=== PATIENT | male | born 1940 | race Caucasian/White ===

== ENCOUNTER 2017-04-02 10:52 | Inpatient (IN) | payer OTHER, MEDICARE ==
[~2017-04-02] VITALS: Ht 172.7 cm; Wt 77.1 kg
[~2017-04-02 10:52] MED LIST: AMLODIPINE BESY10 M1 PO; AMLODIPINE BESYL5 M1 PO; ATENOLOL100 M1 PO; ATORVASTATIN CA40 M1 PO; BENICAR40 M1 PO; CARBIDOPA-LEVO1 EAC7 PO; COLACE100 M1 PO; ENTACAPONE200 M1 PO; LISINOPRIL-HCT1 EAC1 PO; MAGNESIUM400 M1 PO; NUPLAZID17 MG PO; POTASSIUM CHLO20 ME2 PO
--- NOTE | 2017-04-02 11:20 | ED CARDIAC/CP/PALPITATIONS ---
History of Present Illness General Chief Complaint: Altered Mental Status Stated Complaint: BIBA CHANGE IN MENTAL STATUS Source: patient Exam Limitations: no limitations Vital Signs & Intake/Output Vital Signs & Intake/Output Vital Signs Date Time Temp Pulse Resp B/P B/P Pulse O2 O2 Flow FiO2 Mean Ox Delivery Rate 04/02 1359 98.2 112 17 122/66 99 Room Air 04/02 1358 98.2 112 17 122/66 04/02 1302 98.2 144 24 154/94 04/02 1302 98.2 144 24 154/94 100 Room Air 04/02 1201 139 13 138/107 04/02 1151 99 Room Air 04/02 1103 98.3 129 18 155/96 95 Room Air Allergies Coded Allergies: No Known Allergies (02/06/16) Reconcile Medications Amlodipine Besylate 5 MG TABLET 1 TAB PO 0900 HEART/BP (Reported) Atorvastatin Calcium 40 MG TABLET 1 TAB PO DAILY CHOLESTEROL (Reported) Carbidopa/Levodopa (Carbidopa-Levodopa 25-100 Tab) 25 MG-100 MG TABLET 1 TAB PO 5XDAILY PARKINSONS (Reported) Cefuroxime Axetil (Cefuroxime) 500 MG TABLET 1 TAB PO BID ANTIBIOTIC, INFECTION (Reported) Docusate Sodium (Colace) 100 MG CAPSULE 1 CAP PO BID STOOL SOFTENER (Reported ) Entacapone 200 MG TABLET 1 TAB PO TID PARKINSONS (Reported) Magnesium Oxide (Magnesium) 400 MG CAPSULE 1 CAP PO BID SUPPLEMENT (Reported) Nitrofurantoin Monohyd/M-Cryst (Nitrofurantoin [place]-Mcr 100 MG) 100 MG CAPSULE 1 CAP PO BID ANTIBIOTIC, INFECTION (Reported) Pimavanserin Tartrate (Nuplazid) 17 MG TABLET 2 TAB PO 0700 UNKNOWN (Reported ) Potassium Chloride 20 MEQ TAB.ER.PRT 1 TAB PO DAILY SUPPLEMENT (Reported) Triage Note: 76 Y/O MALE BIBA FROM [facility] FOR EVAL OF "DIFFICULTY WAKING THIS MORNING". STATES PT HAS PARKINSONS AND OFTEN IS DIFFICULT TO AROUSE HOWEVER THIS MORNING IT SEEMED TO BE LONGER IN DURATION. PER EMS, PT ONLY WOKE WHEN EMS LIFTED PT OUT OF BED. PT ARRIVES A/O X 4, DENIES PAIN. "I FEEL FINE". ALSO REPORTS RECENT URI SYMPTOMS AND CONGESTED COUGH - LAST DAY ANTIBIOTICS TODAY. HR NOTED TO BE RAPID IN 140'S. EKG IN PROGRESS AWAITING EVAL PRE HOSPITAL FLUIDS D/[place]EXANDER UNTIL EVAL. HEPLOCKED Triage Nurses Notes Reviewed? yes Onset: Abrupt Duration: day(s):, constant Timing: recent history Quality/Severity: moderate Radiation: no radiation Activities at Onset: none HPI: 76-year-old male comes into the emergency room with increased weakness, shortness of breath, coughing, and some intermittent chest pains. Patient has had symptoms getting worse over the last couple weeks. He has a history of Parkinson's hypertension and hyperlipidemia. He has some baseline dementia from the Parkinson's disease. There is been no reports of fever vomiting or chills. Denies any other associated symptoms. (Yonatan Castorena) Past History Travel History Traveled to [place] past 21 day No Medical History Any Pertinent Medical History? see below for history Neurological: dementia, Parkinson's disease EENT: NONE Cardiovascular: hypertension Respiratory: NONE Gastrointestinal: NONE Hepatic: NONE Renal: NONE Musculoskeletal: NONE Psychiatric: NONE Endocrine: NONE Blood Disorders: NONE Cancer(s): NONE Surgical History Surgical History: hernia repair-inguinal Psychosocial History Services at Home Nursing, Occupational Therapy, Physical Therapy What is your primary language E[place]an Family History Family History, If Any: FATHER Relation not specified for: FH: Parkinson's disease Hx Contributory? No (Yonatan Castorena) Review of Systems Review of Systems Constitutional: Reports: see HPI. EENTM: Reports: no symptoms. Respiratory: Reports: see HPI. Cardiovascular: Reports: see HPI. GI: Reports: no symptoms. Genitourinary: Reports: no symptoms. Musculoskeletal: Reports: no symptoms. Skin: Reports: no symptoms. Neurological/Psychological: Reports: no symptoms. Hematologic/Endocrine: Reports: no symptoms. Immunologic/Allergic: Reports: no symptoms. All Other Systems: Reviewed and Negative (Yonatan Castorena) Physical Exam Physical Exam General Appearance: alert, awake, mild distress Head: atraumatic Eyes: Bilateral: normal appearance. Ears, Nose, Throat: normal ENT inspection, hearing grossly normal Neck: normal inspection Respiratory: no respiratory distress, decreased breath sounds Cardiovascular: tachycardia, irregularly irregular Gastrointestinal: soft Rectal: brown stool, trace heme positve Back: normal inspection Extremities: normal inspection, no edema Neurologic/Psych: awake, alert, oriented x 3 Skin: intact, normal color Core Measures ACS in differential dx? Yes CVA/TIA Diagnosis No Sepsis Present: No Sepsis Focused Exam Completed? No (Ike AUGUST,Yonatan) Progress Differential Diagnosis: AMI, aortic dissection, atrial fibrillation, CHF/pulm edema, hyperthyroid, intracranial hemorrhage, musculoskeletal pain, myocarditis, pancreatitis, pericarditis, pneumonia, pneumothorax, pulmonary embolism, PUD/ GERD, PVCs/PACs, sepsis, unstable angina Plan of Care: Orders Procedure Date/time Status LIPID PANEL 04/03 0600 Active CBC WITHOUT DIFFERENTIAL 04/03 0600 Active BASIC ELECTROLYTES PLUS BUN&CR 04/03 0600 Active Heart Healthy Diet 04/02 D Active PARTIAL THROMBOPLASTIN TIME 04/02 1950 Active RAPID VIRAL INFLUENZA A 04/02 1502 Active Pathway - chart 04/02 1457 Active House Staff 04/02 1457 Active Patient Data 04/02 1457 Active Code Status 04/02 1457 Active ED Holding Orders 04/02 1338 Active Admit to inpatient 04/02 1338 Active Vital Signs 04/02 1338 Active Code Status 04/02 1338 Complete Patient Data 04/02 1324 Active EKG 04/02 1246 Active THYROID STIMULATING HORMONE 04/02 1140 Complete TOTAL TRIODOTHYROXINE 04/02 1140 Complete THYROXINE 04/02 1140 Complete FREE T4 04/02 1140 Complete BLOOD CULTURE 04/02 1119 Active URINALYSIS 04/02 1119 Complete TROPONIN LEVEL 04/02 1119 Complete PARTIAL THROMBOPLASTIN TIME 04/02 1119 Complete PROTHROMBIN TIME 04/02 1119 Complete LACTIC ACID 04/02 1119 Complete COMPREHENSIVE METABOLIC PANEL 04/02 1119 Complete CBC WITHOUT DIFFERENTIAL 04/02 1119 Complete Intake & Output 04/02 1103 Active EKG 04/02 1103 Active Lab Add-on Test 04/02 UNK Active VTE Mechanical Prophylaxis 04/02 UNK Active Telemetry/Mold Hoister 04/02 UNK Active Nursing Misc 04/02 UNK Active ECHOCARDIOGRAM 04/02 UNK Active Current Medications Sig/Amador Start time Last Medication Dose Stop Time Status Admin Atorvastatin Calcium 40 MG DAILY 04/03 1000 AC (Lipitor) Potassium Chloride 20 MEQ DAILY 04/03 1000 AC (K-Dur) Docusate Sodium 100 MG BID 04/02 2200 AC (Colace) Entacapone 200 MG TID 04/02 1600 AC (Comtan) Non-Formulary 0 SEE ADMIN CRITERIA 04/02 1530 UNVr Medication (NON FORMULARY) Carbidopa/Levodopa 1 TAB .[5XDAILY] 04/02 1515 UNVr (Sinemet 25/100MG) Diltiazem HCl 125 MG Q16H 04/02 1515 AC (Cardizem DRIP) Dextrose/Water 100 ML (D5W) Nitrofurantoin 100 MG BID 04/02 1507 AC (Macrodantin 50MG 04/03 1001 Cap) Magnesium Oxide 400 MG BID 04/02 1506 AC (Mag-Ox) Heparin Sodium 25,000 UNIT Q24H 04/02 1330 AC 04/02 (Porcine) 1347 (Heparin) Sodium Chloride 500 ML Laboratory Tests 04/02/17 1419: Lactic Acid Cancelled 04/02/17 1355: Urine Color YEL, Urine Clarity CLEAR, Urine pH 6.0, Ur Specific [place] 1.025, Urine Protein 30 H, Urine Ketones TRACE H, Urine Nitrite NEG, Urine Bilirubin NEG, Urine Urobilinogen 0.2, Ur Leukocyte Esterase NEG, Ur Microscopic SEDIMENT EXAMINED, Urine RBC RARE, Urine WBC 1-3 H, Urine Mucus MANY H, Urine Hemoglobin NEG, Urine Glucose NEG 04/02/17 1140: Anion Gap 10, Estimated GFR > 60, BUN/Creatinine Ratio 30.0 H, Glucose 116 H, Lactic Acid 1.5, Calcium 8.8, Total Bilirubin 0.7, AST 23, ALT 19 L, Alkaline Phosphatase 94, Troponin I 0.03, Total Protein 7.3, Albumin 3.7, Globulin 3.6, Albumin/Globulin Ratio 1.0 L, TSH 1.240, Free T4 1.28, Thyroxine (T4) 7.4, Total T3 0.98, PT 12.0, INR 1.14, APTT 30, CBC w Diff NO MAN DIFF REQ, RBC 5.30, MCV 73.2 L, MCH 24.3 L, MCHC 33.1, RDW 15.7 H, MPV 8.7, Gran % 90.8 H, Lymphocytes % 6.5 L, Monocytes % 2.7, Eosinophils % 0, Basophils % 0, Absolute Granulocytes 9.3 H, Absolute Lymphocytes 0.7 L, Absolute Monocytes 0.3, Absolute Eosinophils 0, Absolute Basophils 0 Microbiology 04/02 1502 NASOPHARYN: Influenza Virus A & B Rapid Smear - ORD 04/02 1155 BLOOD: Blood Culture - RECD 04/02 1140 BLOOD: Blood Culture - RECD Diagnostic Imaging: Viewed by Me: Radiology Read. Discussed w/RAD: Radiology Read. Radiology Impression: PATIENT: YULY XAVIER PRESENT AGE: 76 PATIENT ACCOUNT NO: [id number] : 41 LOCATION: [facility] ORDERING PHYSICIAN: Yonatan AUGUST SERVICE DATE: 04/02/17 EXAM TYPE : RAD - XRY-PORTABLE CHEST XRAY EXAMINATION: XR PORTABLE CHEST CLINICAL INFORMATION: Cough COMPARISON: 08/22/2016 TECHNIQUE: Portable frontal view of the chest was obtained. FINDINGS: Lungs are well expanded and clear. No pulmonary consolidation or pleural effusion. Again noted is a mildly enlarged cardiac silhouette. The hilar contours are normal. The visualized bones are intact. IMPRESSION: No acute cardiopulmonary findings. DICTATED BY: John Faria MD DATE/TIME DICTATED:04/02/171210 [employer]:WILDER DATE/TIME TRANSCRIBED:04/02/171210 CONFIDENTIAL, DO NOT COPY WITHOUT APPROPRIATE AUTHORIZATION. <Electronically signed in Other Vendor System> SIGNED BY: John Faria MD 04/02/171214 Initial ED EKG: rate (118), AFIB (Yonatan Castorena) Departure Departure Disposition: STILL A PATIENT Condition: Stable Clinical Impression Primary Impression: Rapid atrial fibrillation Secondary Impressions: New onset a-fib Referrals: Caty Franks MD (PCP/Family) Departure Forms: Customer Survey General Discharge Information Admission Note Spoke With: Freddy SIMS PHD,Anam Rios Documentation of Exam: Documentation of any treatments & extenuating circumstances including Concerns Regarding Discharge (functional status, medication knowledge or non-compliance, living conditions, etc.) that warrant an admission rather than observation: Patient will require rate control. IV heparin. Cardiac telemetry. Cardiac consultation. Echocardiogram. High risk. Medically not safe for discharge. No prior history. (Yonatan Castorena) PA/LAW EXAMINER Co-Sign Statement Statement: ED Attending supervision documentation- [x] I saw and evaluated the patient. I have also reviewed all the pertinent lab results and diagnostic results. I agree with the findings and the plan of care as documented in the PA's/LAW EXAMINER's documentation. [] I have reviewed the ED Record and agree with the PA's/LAW EXAMINER's documentation. [] Additions or exceptions (if any) to the PAs/LAW EXAMINER's note and plan are summarized below: [] (Zain BOYER,Damon Butler) Critical Care Note Critical Care Note Critical Care Time: 30-74 min (45) (Ike AUGUST,Yonatan)
[2017-04-02] MEDS ORDERED: NITROFURANTOIN100 M6 PO (11:50)
[2017-04-02] MEDS ORDERED: CEFUROXIME500 MG PO (11:50)
[2017-04-02 11:57] LABS: ABSOLUTE BASOPHIL COUNT 0 /CUMM (0.0-0.2); ABSOLUTE EOSINOPHIL COUNT 0 /CUMM (0.0-0.7); ABSOLUTE GRANULOCYTE CT 9.3 /CUMM (1.4-6.5); ABSOLUTE LYMPH COUNT 0.7 /CUMM (1.2-3.4); ABSOLUTE MONOCYTE COUNT 0.3 /CUMM (0.10-0.60); BASOPHIL % 0 % (0.0-2.0); EOSINOPHIL % 0 % (0-5); HEMATOCRIT 38.8 % (42-52); MEAN CORPUSCULAR HGB 24.3 PG (27.0-31.0); MEAN CORPUSCULAR HGB CONC 33.1 G/DL (33.0-37.0); MEAN CORPUSCULAR VOLUME 73.2 FL (80.0-94.0); MEAN PLATELET VOLUME 8.7 FL (7.4-10.4); PLATELET COUNT 251 /CUMM (130-400); RBC DISTRIBUTION WIDTH 15.7 % (11.5-14.5); WHITE BLOOD CELL COUNT 10.2 /CUMM (4.8-10.8)
[2017-04-02 12:10] LABS: PTT 30 SEC (25-37)
--- NOTE | 2017-04-02 12:15 | RADIOLOGY REPORT ---
EXAMINATION: XR PORTABLE CHEST CLINICAL INFORMATION: Cough COMPARISON: 08/22/2016 TECHNIQUE: Portable frontal view of the chest was obtained. FINDINGS: Lungs are well expanded and clear. No pulmonary consolidation or pleural effusion. Again noted is a mildly enlarged cardiac silhouette. The hilar contours are normal. The visualized bones are intact. IMPRESSION: No acute cardiopulmonary findings.
[2017-04-02 12:17] LABS: GRANULOCYTE % 90.8 % (42.2-75.2)
--- NOTE | 2017-04-02 13:31 | History & Physical ---
Byron Rosales MD 04/02/17 1331: General Information and HPI MD Statement: I have seen and personally examined YULY XAVIER and documented this H&P. The patient is a 76 year old M who presented with a patient stated chief complaint of [weakness and lethargy]. Source of Information: family, old records, EMS History of Present Illness: Patient is 76-year-old male with past medical history of hypertension, hyperlipidemia, Parkinson's, dementia, multiple urinary tract infections, multiple falls, with previous admission in 2016 s/p fall, obstructive sleep apnea, loss of peripheral vision presenting this admission with generalized weakness and lethargy. Per ED notes: Patient was brought in by ambulance from private residence reportedly was difficult to arouse this morning. Per EMS patient will only after being lifted out of bed. Per patient has had upper respiratory infection symptoms and congestion and cough and is currently on antibiotics. Patient was tachy in the 140s. Due to patient's dementia and poor short-term memory, a majority of the history was obtained from the . Patient's states that over the past month, the patient has been having a cough for which he was given mucinex without relief. Approximately 1 week prior to this admission patient's pcp placed him on cefuroxime 500mg BID (has one dose left today). Approximately 2-3 days prior to admission he started experiencing sweating and decreased urine output. Patient is normally continent during the day and occasionally has noctural incontinence. Patients also noted patient's appetite has decreased over the past week however he continues to drink 1-2L of fluid per day and meals are supplemented with ensure. Patient's urine per was foul smelling and per she sent it to the pcp for evaluation of UTI. Patient was found to have UTI and was started on nitrofurontoin 100mg BID (3 more doses left). Over the past week patient has noticeably more twitches/tremors per the . Patient on the morning of admission was found to be lethargic and poorly responsive. EMS was called and per notes patient only awoke once he was being moved from his bed. Patient's states that he was found to have tachycardia approximately 15 years prior for which he believes he was started on atenolol which was stopped 3 years prior after she switched his care. Patient's aide has been documenting patient's blood pressure and heart rate. Over the past two weeks patient's heart rate has been in the 150s with low blood pressures. ROS: + sweating, + joint pain and weakness, difficulty ambulating, + perioid swelling of feet, + gained weight, +constantly craving sugar and increased thirst Allergies: Flomax (became floridly psychotic during admission at [facility] - in 2017) Allergies/Medications Allergies: Coded Allergies: No Known Allergies (02/06/16) Home Med list Amiodarone (Cordarone) 200 MG TAB 0 PO SEE ADMIN CRITERIA HEART Please take 2 tabs twice daily for 4 more days Then please take 1 tab twice daily Aspirin (Aspirin*) 81 MG TAB.CHEW 162 MG PO DAILY HEART Atorvastatin Calcium 40 MG TABLET 1 TAB PO DAILY CHOLESTEROL (Reported) Carbidopa/Levodopa (Carbidopa-Levodopa 25-100 Tab) 25 MG-100 MG TABLET 1 TAB PO 5XDAILY PARKINSONS (Reported) Diltiazem HCl (Cardizem) 30 MG TABLET 1 TAB PO BID HEART Docusate Sodium (Colace) 100 MG CAPSULE 1 CAP PO BID STOOL SOFTENER (Reported ) Entacapone 200 MG TABLET 1 TAB PO TID PARKINSONS (Reported) Magnesium Oxide (Magnesium) 400 MG CAPSULE 1 CAP PO BID SUPPLEMENT (Reported) Potassium Chloride 20 MEQ TAB.ER.PRT 1 TAB PO DAILY SUPPLEMENT (Reported) Past History Travel History Traveled to [place] past 21 day No Medical History Neurological: dementia, Parkinson's disease EENT: NONE Cardiovascular: hypertension Respiratory: NONE Gastrointestinal: NONE Hepatic: NONE Renal: NONE Musculoskeletal: NONE Psychiatric: NONE Endocrine: NONE Blood Disorders: NONE Cancer(s): NONE Surgical History Surgical History: hernia repair-inguinal Past Family/Social History Family History Relations & Conditions if any FATHER Relation not specified for: FH: Parkinson's disease Psychosocial History Who Do You Live With? spouse Services at Home: Nursing, Occupational Therapy, Physical Therapy Primary Language: [place] Review of Systems Review of Systems Constitutional: Reports: weakness. Exam & Diagnostic Data Last 24 Hrs of Vital Signs/I&O Vital Signs Date Time Temp Pulse Resp B/P B/P Pulse O2 O2 Flow FiO2 Mean Ox Delivery Rate 04/02 1302 98.2 144 24 154/94 04/02 1201 139 13 138/107 04/02 1151 99 Room Air 04/02 1103 98.3 129 18 155/96 95 Room Air Intake & Output 04/02 1600 02/19 0800 04/02 0000 Intake Total 200 Output Total Balance 200 Intake, IV 200 Patient 178 lb Weight Weight Reported by Patient Measurement Method Physical Exam General Appearance Alert, Cooperative, No Acute Distress Skin Temp/Moisture Exam: Warm/Dry HEENT Atraumatic, PERRLA, EOMI, Mucous Membr. moist/pink Cardiovascular Normal S1, Normal S2, irregular rate Lungs Clear to Auscultation, Normal Air Movement Abdomen Normal Bowel Sounds, Soft, No Tenderness Neurological Normal Speech, Strength at 5/5 X4 Ext, Normal Tone, Sensation Intact, Cranial Nerves 3-12 NL Extremities No Clubbing, No Cyanosis, No Edema, Normal Pulses, No Tenderness/ Swelling Vascular Normal Pulses, Pulses Symmetrical Last 24 Hrs of Labs/Maxwell: Laboratory Tests 04/02/17 1140: Anion Gap 10, Estimated GFR > 60, BUN/Creatinine Ratio 30.0 H, Glucose 116 H, Lactic Acid 1.5, Calcium 8.8, Total Bilirubin 0.7, AST 23, ALT 19 L, Alkaline Phosphatase 94, Troponin I 0.03, Total Protein 7.3, Albumin 3.7, Globulin 3.6, Albumin/Globulin Ratio 1.0 L, PT 12.0, INR 1.14, APTT 30, CBC w Diff NO MAN DIFF REQ, RBC 5.30, MCV 73.2 L, MCH 24.3 L, MCHC 33.1, RDW 15.7 H, MPV 8.7, Gran % 90.8 H, Lymphocytes % 6.5 L, Monocytes % 2.7, Eosinophils % 0, Basophils % 0, Absolute Granulocytes 9.3 H, Absolute Lymphocytes 0.7 L, Absolute Monocytes 0.3, Absolute Eosinophils 0, Absolute Basophils 0 Microbiology 04/02 1155 BLOOD: Blood Culture - RECD 04/02 1140 BLOOD: Blood Culture - RECD Assessment/Plan Assessment: Patient is a 76-year-old male with past medical history of hypertension, hyperlipidemia, Parkinson's, dementia, multiple urinary tract infections, multiple falls, with previous admission in 2016 s/p fall, obstructive sleep apnea, loss of peripheral vision presenting this admission with generalized weakness and lethargy. On admission: Vitals:T-max: 98.2, heart rate: 129 to 144, RR: 13 to 24, BP: 154/94, 99% on RA EKG: Atrial Fibrillation, rate: 118, left axis deviation, left ventricular hypertrophy, no ST or T wave changes Imaging: CXR: No acute cardiopulmonary findings. Patient will be admitted to telemetry for management of the followin. Atrial Fibrillation: Patient presents with what appears to be new onset A.fib. It appears based on the history and log of his HR, that he may have been in A.fib for > 48 hours. As such patient requires anticoagulation prior to any type of the intervention. Patient received IV Cardizem in the ED. - admit to tele - serial EKG and trops - anticoagulation with IV heparin - continue diltiazem - ECHO - TSH, Free T4 - Monitor vitals 2. UTI History of recurrent UTIs. Currently completing a course of antibiotics for UTI. Today's U/A is negative. - complete the last 3 doses of nitrofurontoin 3. Microcytic anemia Likely patient has anemia 2/2 to GI bleed. - monitor vitals and signs of bleeding - guiac stoosl 4. Parkinson's wtih delirum and demention Patient was scheduled to have an MRI by his neurologist per patient's . Per patient's mental status has declined. - neurology consult - MRI of the brain 5. Hypertension - started on cardizem - amlodipine held DVT PPx: Heparin drip Code: full code Diet: heart healthy diet As Ranked By This Provider Problem List: 1. New onset a-fib Core Measures/Misc (10/29) Acute Coronary Syndrome ACS Diagnosis: No Congestive Heart Failure Congestive Heart Failure Diagnosis No Cerebrovascular Accident CVA/TIA Diagnosis: No VTE (View Protocol) VTE Risk Factors Age>40 No Mechanical VTE Prophylaxis d/t N/A MechProphylax Ordered No VTE Pharm Prophylaxis d/t NA PharmProphylax ordered Sepsis (View protocol) Sepsis Present: No Melania Spencer MD 04/02/17 1524: Resident Review Statement Resident Statement: examined this patient, discussed with internal control analyst, agreed with internal control analyst, discussed with family Other Findings: Patient is a 76-year-old male with past medical history of Parkinson's disease complicated by delirium/dementia, hypertension, hyperlipidemia, recurrent UTI infection, history of multiple falls, loss of peripheral vision, snoring. Obstructive sleep apnea, presented with chief complaints of generalized weakness and difficulty waking him up in the morning. Most of the history is taken from the . According to her he was having cough since last 1 month. She tries Mucinex without any relief. She talked to his PCP , who started him on cefuroxime 500 mg twice daily (today will be the last day x 5 days ). 3 or 4 days ago he started having sweating, decreased appetite, decreased urine output. According to her urine was dark and found spanning so she took the sample, and requested the PCP for checking for UTI. It was positive the patient was started on nitrofurantoin 100 mg twice daily (he was left with 3 doses). He usually take time to wake up in the morning, but today he was quite lethargic and obtunded. According to the and EMS, he woke up when he was lifted off the bed. Of note according to the patient's he had episodes of tachycardia around 15 years ago and he was kept on atenolol which was stopped 3 years ago. Of note patient also told that he was following a neurologist who advised her MRI of the brain around 1 month ago for suspected stroke. He is scheduled for MRI of brain as an outpatient. He was also on a medication Nupalzid for Parkinson's induced delirium, which can cause arrhythmia. Personal history -patient lives at home with her . He quit smoking and alcohol 15 years ago. Denies for any illicit drug abuse. 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 He does not have any complaints with diet, so he started gaining weight. Allergies -Flomax leading to delirium Past medical history - Dementia Parkinson's Hypertension Multiple urinary tract infection Hx fo confusion and delirium Surgical history- Inguinal hernia ED course Vital signs at the time of admission temperature 98.3, pulse 129, respiratory rate 18, blood pressure 155/96, SPO2 95% on room air. Heart rate was 140s. Blood workup showed hemoglobin 12.9, MCV 73.2, platelet count 251, sodium 142, potassium 4.1, chloride 104, anion gap 10, BUN 21, creatinine 0.7, BUN/ creatinine 30.0, glucose 116,AST 23, ALT 19, alkaline phosphatase 94, troponin I 0.03, PT/INR 12.0/1.14, APTT 30, urinalysis showed urine protein 30, ketones trace, WBC 93, mucus many, chest x-ray did not show any acute cardiopulmonary abnormality. Assessment and plan - Atrial fibrillation with rapid ventricular rate - Patient was having history of tachycardia, s 2 years ago Elisha 20 year and was on atenolol which was stopped 3 years ago.We will get the records from his PCP. We do not know if this is a new onset atrial fibrillation. Patient is having guaiac positive stool. He was started on heparin drip and given 10 mg/5 mg of Cardizem pushes. * We will admit the patient to telemetry floor * We will continue patient on heparin and Cardizem drip * we will check for thyroid profile * We will stop amlodipine as the Cardizem is also calcium channel christine. * We will watch for the BP , will watch further bleeding. Will guaiac all stools. * Patient is on Nupalzid, its side effect is, QT prolongation and arrhythmia. Discussed with Dr. Hayes, advised to continue. Cough with chest congestion -post viral bronchitis - Patient already had a course of cefuroxime is still having cough, on physical examination there was good air entry and no evidence of wheezing or bronchospasm. * We will check flu History of recurrent UTI Patient was having history of recurrent UTIs and according to the , this time also his urine was showing infection. He was started on nitrofurantoin. Currently urinalysis did not show any evidence of infection WBC was 1-3. * We will completed the course of nitrofurantoin. * We will follow the urine culture Hypertension Patient was started on Cardizem. He was previously on amlodipine with hold for now and decide for another antihypertensive later on. Microcytic hypochromic anemia Patient's hemoglobin was 12.9 and MCV was 73.2 His stools were guaiac positive. It seems he has iron deficiency anemia * We will check for iron panel * We we will will watch for bleeding * We will Consider GI evaluation if needed Parkinsonism with delirium/dementia * He will continue all his home medication * As he advised by his neurologist for MRI of brain for concern for stroke, we will follow MRI of brain to r/o stroke. CODE STATUS-full code DVT prophylaxis-heparin drip Diet-heart healthy diet DVT prophylaxis-heparin drip Diet-heart healthy diet
--- NOTE | 2017-04-02 17:25 | MRI REPORT ---
Impression: Only motion degraded localizer sequences could be obtained due to patient confusion.
[2017-04-02 17:39] VITALS: BP 150/90
--- NOTE | 2017-04-02 18:10 | Cons- Neurology ---
General Information and HPI Consulting Request Date of Consult: 04/02/17 Requested By: Freddy SIMS PHD,Anam Rios Reason for Consult: Altered mental status, r/o CVA Source of Information: patient, family, aide Exam Limitations: clinical condition, dementia History of Present Illness: 76/M with Parkinsons disease for about 10 years and dementia followed neurologically by Dr. Go in [place] brought in by ambulance this AM as he was difficult to arouse. Heart rate was 140s, AF, and recent URI on antibiotics. He denies any lateralized weakness, numbness or headache He and the aide report occasional moments of reduced responsiveness PD has worsened significantly in the last year since a fall Hallucinations frequent and no improvement on Nuplaizid Functional ability: able to feed self, amb only with walker and assist of 1, unable to arise without help Allergies/Medications Allergies: Coded Allergies: No Known Allergies (02/06/16) Home Med List: Amlodipine Besylate 5 MG TABLET 1 TAB PO 0900 HEART/BP (Reported) Atorvastatin Calcium 40 MG TABLET 1 TAB PO DAILY CHOLESTEROL (Reported) Carbidopa/Levodopa (Carbidopa-Levodopa 25-100 Tab) 25 MG-100 MG TABLET 1 TAB PO 5XDAILY PARKINSONS (Reported) Cefuroxime Axetil (Cefuroxime) 500 MG TABLET 1 TAB PO BID ANTIBIOTIC, INFECTION (Reported) Docusate Sodium (Colace) 100 MG CAPSULE 1 CAP PO BID STOOL SOFTENER (Reported ) Entacapone 200 MG TABLET 1 TAB PO TID PARKINSONS (Reported) Magnesium Oxide (Magnesium) 400 MG CAPSULE 1 CAP PO BID SUPPLEMENT (Reported) Nitrofurantoin Monohyd/M-Cryst (Nitrofurantoin Bailey-Mcr 100 MG) 100 MG CAPSULE 1 CAP PO BID ANTIBIOTIC, INFECTION (Reported) Pimavanserin Tartrate (Nuplazid) 17 MG TABLET 2 TAB PO 0700 UNKNOWN (Reported ) Potassium Chloride 20 MEQ TAB.ER.PRT 1 TAB PO DAILY SUPPLEMENT (Reported) Current Medications: Current Medications Sig/Amador Start time Last Medication Dose Route Stop Time Status Admin Atorvastatin Calcium 40 MG DAILY 04/03 1000 AC PO Carbidopa/Levodopa 1 TAB .[5XDAILY] 04/02 1515 UNVr PO Cefuroxime Sodium 500 MG ONCE ONE 04/02 1515 DC PO 04/02 1516 Diltiazem HCl 60 MG BID 04/02 2200 UNVr PO Diltiazem HCl 125 MG Q16H 04/02 1515 DC Dextrose/Water 100 ML IV Diltiazem HCl 5 MG ONCE ONE 04/02 1315 DC 04/02 IV 04/02 1316 1358 Diltiazem HCl 5 MG ONCE ONE 04/02 1300 DC 04/02 IV 04/02 1301 1302 Diltiazem HCl 0 .STK-MED ONE 04/02 1202 DC .ROUTE Diltiazem HCl 10 MG ONCE ONE 04/02 1130 DC 04/02 IV 04/02 1131 1201 Docusate Sodium 100 MG BID 04/02 2200 AC PO Entacapone 200 MG TID 04/02 1600 AC PO Heparin Sodium 0 .STK-MED ONE 04/02 1354 DC (Porcine) .ROUTE Heparin Sodium 0 .STK-MED ONE 04/02 1353 DC (Porcine) .ROUTE Heparin Sodium 4,000 UNIT ONCE ONE 04/02 1330 DC 04/02 (Porcine) IV 04/02 1331 1358 Heparin Sodium 25,000 UNIT Q24H 04/02 1330 AC 04/02 (Porcine) IV 1347 Sodium Chloride 500 ML Magnesium Oxide 400 MG BID 04/02 1506 AC PO Nitrofurantoin 100 MG BID 04/02 1507 AC PO 04/03 1001 Non-Formulary 0 SEE ADMIN CRITERIA 04/02 1530 UNVr Medication ANY Potassium Chloride 20 MEQ DAILY 04/03 1000 AC PO Review of Systems Review of Systems: admits poor memory, hallucinations animals and people, vision OK SOB chest pain denied constipated ROS limited by dementia Past History Travel History Traveled to [place] past 21 day No Medical History Neurological: dementia, Parkinson's disease EENT: NONE Cardiovascular: hypertension Respiratory: NONE Gastrointestinal: NONE Hepatic: NONE Renal: NONE Musculoskeletal: NONE Psychiatric: NONE Endocrine: NONE Blood Disorders: NONE Cancer(s): NONE Surgical History Surgical History: hernia repair-inguinal Family History Relations & Conditions If Any: FATHER Relation not specified for: FH: Parkinson's disease Psychosocial History Who Do You Live With? spouse Services at Home: Nursing, Occupational Therapy, Physical Therapy Primary Language: Irish ETOH Use: denies use Exam & Diagnostic Data Vital Signs and I&O Vital Signs Date Time Temp Pulse Resp B/P B/P Pulse O2 O2 Flow FiO2 Mean Ox Delivery Rate 04/02 1739 97.9 82 22 150/90 95 Room Air 04/02 1606 98.4 106 22 147/89 98 Room Air 04/02 1359 98.2 112 17 122/66 99 Room Air 04/02 1358 98.2 112 17 122/66 04/02 1302 98.2 144 24 154/94 04/02 1302 98.2 144 24 154/94 100 Room Air 04/02 1201 139 13 138/107 04/02 1151 99 Room Air 04/02 1103 98.3 129 18 155/96 95 Room Air Intake & Output 04/02 1600 04/02 0800 04/02 0000 Intake Total 200 Output Total 500 Balance -300 Intake, IV 200 Output, Urine 500 Patient 178 lb Weight Weight Reported by Patient Measurement Method Physical Exam: color good tachypneic with marked upper airway noise awake oriented to Dec 2016, hospital (not which one) named only 1 of last 4 presidents no language errors mild dysarthria no current hallucination or illusions EOMI, P4ERRL facial movement symmetric, sensation intact LT tongue protrudes midline motor tone increased, mild - mod bradykinesia, labor operator 5/5, power normal DRTRs symmetric, toes downgoing sensation OK LT all 4 extremities Last 48 Hours of Lab Results: Laboratory Tests 04/02 04/02 1419 1355 Chemistry Lactic Acid Cancelled Urines Urine Color (YEL,AMB,STR) YEL Urine Clarity (CLEAR) CLEAR Urine pH (5.0 - 8.0) 6.0 Ur Specific [place] (1.001 - 1.035) 1.025 Urine Protein (NEG,<30 MG/DL) 30 H Urine Ketones (NEG) TRACE H Urine Nitrite (NEG) NEG Urine Bilirubin (NEG) NEG Urine Urobilinogen (0.1 - 1.0 EU/dl) 0.2 Ur Leukocyte Esterase (NEG) NEG Ur Microscopic SEDIMENT EXAMINED Urine RBC (0 - 5 /HPF) RARE Urine WBC (0 - 2 /HPF) 1-3 H Urine Mucus (FEW,NONE) MANY H Urine Hemoglobin (NEG) NEG Urine Glucose (N MG/DL) NEG 04/02 1140 Chemistry Sodium (137 - 145 mmol/L) 142 Potassium (3.5 - 5.1 mmol/L) 4.1 Chloride (98 - 107 mmol/L) 104 Carbon Dioxide (22 - 30 mmol/L) 28 Anion Gap (5 - 16) 10 BUN (9 - 20 mg/dL) 21 H Creatinine (0.7 - 1.2 mg/dL) 0.7 Estimated GFR (>60 ml/min) > 60 BUN/Creatinine Ratio (7 - 25 %) 30.0 H Glucose (65 - 99 mg/dL) 116 H Lactic Acid (0.7 - 2.1 mmol/L) 1.5 Calcium (8.4 - 10.2 mg/dL) 8.8 Iron (49 - 181 ug/dL) 88 TIBC (261 - 462 ug/dL) 316 Ferritin (17.9 - 464 ng/mL) 45.2 Total Bilirubin (0.2 - 1.3 mg/dL) 0.7 AST (17 - 59 U/L) 23 ALT (21 - 72 U/L) 19 L Alkaline Phosphatase (< 127 U/L) 94 Troponin I (<0.11 ng/ml) 0.03 Total Protein (6.3 - 8.2 g/dL) 7.3 Albumin (3.5 - 5.0 g/dL) 3.7 Globulin (1.9 - 4.2 gm/dL) 3.6 Albumin/Globulin Ratio (1.1 - 2.2 %) 1.0 L TSH (0.270 - 4.200 uIU/mL) 1.240 Free T4 (0.78 - 2.44 ng/dL) 1.28 Thyroxine (T4) (4.5 - 10.9 ug/dL) 7.4 Total T3 (0.97 - 1.69 ng/mL) 0.98 Coagulation PT (9.4 - 12.5 SEC) 12.0 INR (0.90 - 1.17) 1.14 APTT (25 - 37 SEC) 30 Hematology CBC w Diff NO MAN DIFF REQ WBC (4.8 - 10.8 /CUMM) 10.2 RBC (4.70 - 6.10 /CUMM) 5.30 Hgb (14.0 - 18.0 G/DL) 12.9 L Hct (42 - 52 %) 38.8 L MCV (80.0 - 94.0 FL) 73.2 L MCH (27.0 - 31.0 PG) 24.3 L MCHC (33.0 - 37.0 G/DL) 33.1 RDW (11.5 - 14.5 %) 15.7 H Plt Count (130 - 400 /CUMM) 251 MPV (7.4 - 10.4 FL) 8.7 Gran % (42.2 - 75.2 %) 90.8 H Lymphocytes % (20.5 - 51.1 %) 6.5 L Monocytes % (1.7 - 9.3 %) 2.7 Eosinophils % (0 - 5 %) 0 Basophils % (0.0 - 2.0 %) 0 Absolute Granulocytes (1.4 - 6.5 /CUMM) 9.3 H Absolute Lymphocytes (1.2 - 3.4 /CUMM) 0.7 L Absolute Monocytes (0.10 - 0.60 /CUMM) 0.3 Absolute Eosinophils (0.0 - 0.7 /CUMM) 0 Absolute Basophils (0.0 - 0.2 /CUMM) 0 Imaging/Other Studies: MRI - MRI-HEAD W/O [place] Impression: Only motion degraded localizer sequences could be obtained due to patient confusion. CXR: No acute cardiopulmonary findings. Assessment/Plan Assessment: No indication clinically of CVA Transient reduced consciousness due to new onset rapid AF Parkinsons disease, advancing, on Sinemet Hallucinations despite Nuplaizid, which can cause QT prolongation Recommendations: CT head x1 (MRI not feasible in view of patient's status, tachypnea) Discontinue Nuplaizid Continue Sinemet 25/100 5 x daily spread out with entacapone every other dose ( first, third, fifth) If severe or frightening hallucinations use low dose Risperdone prn Cardiac evaluation as is underway Consult Acknowledgment - Thank you for your consult request.
--- NOTE | 2017-04-02 21:28 | Cons- Cardiology ---
General Information and HPI Consulting Request Date of Consult: 04/02/17 Requested By: Freddy SIMS PHD,Anam Rios History of Present Illness: Mr. Delaney is a 76 year old male with history of Parkinson's disease with dementia. He also carries a history of hypertension and dyslipidemia. He was brought to the ER for evaluation of mental status changes and difficulty being aroused. The patient has a congested cough without fever or chills. He denies chest discomfort, shortness of breath or lightheadedness but does have intermittent palpitations. In the ER this patient was noted to be in atrial fibrillation with increased heart rate. He was guaiac positive. Allergies/Medications Allergies: Coded Allergies: No Known Allergies (02/06/16) Home Med List: Amlodipine Besylate 5 MG TABLET 1 TAB PO 0900 HEART/BP (Reported) Atorvastatin Calcium 40 MG TABLET 1 TAB PO DAILY CHOLESTEROL (Reported) Carbidopa/Levodopa (Carbidopa-Levodopa 25-100 Tab) 25 MG-100 MG TABLET 1 TAB PO 5XDAILY PARKINSONS (Reported) Cefuroxime Axetil (Cefuroxime) 500 MG TABLET 1 TAB PO BID ANTIBIOTIC, INFECTION (Reported) Docusate Sodium (Colace) 100 MG CAPSULE 1 CAP PO BID STOOL SOFTENER (Reported ) Entacapone 200 MG TABLET 1 TAB PO TID PARKINSONS (Reported) Magnesium Oxide (Magnesium) 400 MG CAPSULE 1 CAP PO BID SUPPLEMENT (Reported) Nitrofurantoin Monohyd/M-Cryst (Nitrofurantoin Petroleum-Mcr 100 MG) 100 MG CAPSULE 1 CAP PO BID ANTIBIOTIC, INFECTION (Reported) Pimavanserin Tartrate (Nuplazid) 17 MG TABLET 2 TAB PO 0700 UNKNOWN (Reported ) Potassium Chloride 20 MEQ TAB.ER.PRT 1 TAB PO DAILY SUPPLEMENT (Reported) Review of Systems Review of Systems: A review of systems is unremarkable. Past History Travel History Traveled to [place] past 21 day No Medical History Neurological: dementia, Parkinson's disease EENT: NONE Cardiovascular: hypertension Respiratory: NONE Gastrointestinal: NONE Hepatic: NONE Renal: NONE Musculoskeletal: ARTHRITIS Psychiatric: NONE Endocrine: NONE Blood Disorders: NONE Cancer(s): NONE Surgical History Surgical History: hernia repair-inguinal Family History Relations & Conditions If Any: FATHER Relation not specified for: FH: Parkinson's disease Psychosocial History Where Do You Live? Home Who Do You Live With? spouse Services at Home: Nursing, Occupational Therapy, Physical Therapy Primary Language: Upper Sorbian Smoking Status: Former Smoker ETOH Use: denies use Exam & Diagnostic Data Vital Signs and I&O Vital Signs Date Time Temp Pulse Resp B/P B/P Pulse O2 O2 Flow FiO2 Mean Ox Delivery Rate 04/02 2101 82 150/90 04/02 2100 82 150/90 04/02 2028 Nasal 2.0L Cannula 04/02 1739 97.9 82 22 150/90 95 Room Air 04/02 1606 98.4 106 22 147/89 98 Room Air 04/02 1359 98.2 112 17 122/66 99 Room Air 04/02 1358 98.2 112 17 122/66 04/02 1302 98.2 144 24 154/94 04/02 1302 98.2 144 24 154/94 100 Room Air 04/02 1201 139 13 138/107 04/02 1151 99 Room Air 04/02 1103 98.3 129 18 155/96 95 Room Air Intake & Output 04/02 1600 04/02 0800 04/02 0000 04/01 1600 04/01 0800 04/01 0000 Intake Total 200 Output Total 500 Balance -300 Intake, IV 200 Output, Urine 500 Patient 178 lb Weight Weight Reported by Patient Measurement Method Physical Exam: General: WD/WN male in NAD; awake and responsive HEENT: NC/AT, PERRL, EOMI Neck: no JVD, no carotid bruit Heart: RRR w/o murmur Lungs: clear bilaterally Abdomen: soft, NT, +ve bowel sounds Extremities: no edema Neuro: decreased memory, muscle strength 5/5 thoroughout Assessment/Plan Assessment/Plan * This patient has paroxysmal atrial fibrillation. In the setting of this dysrhythmia and in the absence of anticoagulation the patient may have had a CVA but his physical exam is not very suggestive of this. 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 We will obtain a neurology consult. * In consideration of his guaiac positive stool we will try to avoid the need for chronic anticoaguation. Since this patient converted spontaneously to a sinus rhythm we will no try to maintain a sinus rhythm with Amiodarone 400mg BID for a week and thereafter with 200mg daily. For now he can continue on IV heparin with monitoring of his H/H. Check his thyroid function tests and obtain an echocardiogram. * Stop Nuplazid. Consult Acknowledgment - Thank you for your consult request.
[2017-04-02 21:31] LABS: PTT > 120 SEC (25-37)
[2017-04-03 07:01] VITALS: BP 180/110
[2017-04-03 07:49] LABS: ABSOLUTE BASOPHIL COUNT 0 /CUMM (0.0-0.2); ABSOLUTE EOSINOPHIL COUNT 0 /CUMM (0.0-0.7); ABSOLUTE GRANULOCYTE CT 5.6 /CUMM (1.4-6.5); ABSOLUTE LYMPH COUNT 0.9 /CUMM (1.2-3.4); ABSOLUTE MONOCYTE COUNT 0.4 /CUMM (0.10-0.60); BASOPHIL % 0 % (0.0-2.0); EOSINOPHIL % 0.2 % (0-5); GRANULOCYTE % 80.4 % (42.2-75.2); HEMATOCRIT 35.7 % (42-52); MEAN CORPUSCULAR HGB 24.2 PG (27.0-31.0); MEAN CORPUSCULAR HGB CONC 32.5 G/DL (33.0-37.0); MEAN CORPUSCULAR VOLUME 74.4 FL (80.0-94.0); MEAN PLATELET VOLUME 9.3 FL (7.4-10.4); PLATELET COUNT 214 /CUMM (130-400); RBC DISTRIBUTION WIDTH 15.4 % (11.5-14.5)
[2017-04-03 08:28] LABS: PTT 72 SEC (25-37)
--- NOTE | 2017-04-03 08:47 | PN- Housestaff ---
Subjective Follow-up For: Atrial Fibrillation - now in NSR Subjective: Patient was seen and examined today. Patient overnight was reportedly confused. Patient's was concerned about his change in medications. Patient is drowsy but arousable today. Does not have any complaints today. Per patient tends to sleep during the day which is usual for him. Review of Systems Constitutional: Reports: see HPI. Objective Last 24 Hrs of Vital Signs/I&O Vital Signs Date Time Temp Pulse Resp B/P B/P Pulse O2 O2 Flow FiO2 Mean Ox Delivery Rate 04/03 1011 70 142/94 04/03 0701 98.5 77 20 180/110 95 Room Air 04/02 2212 98.9 63 97 Nasal 2.0L Cannula 04/02 2101 82 150/90 04/02 210 82 150/90 04/02 2028 Nasal 2.0L Cannula 04/02 1739 97.9 82 22 150/90 95 Room Air 04/02 1606 98.4 106 22 147/89 98 Room Air 04/02 1359 98.2 112 17 122/66 99 Room Air 04/02 1358 98.2 112 17 122/66 04/02 1302 98.2 144 24 154/94 04/02 1302 98.2 144 24 154/94 100 Room Air 04/02 1201 139 13 138/107 04/02 1151 99 Room Air 04/02 1103 98.3 129 18 155/96 95 Room Air Intake & Output 04/03 1600 04/03 0800 04/03 0000 Intake Total 360 Output Total 150 250 Balance 210 -250 Intake, Oral 360 Output, Urine 150 250 Patient 170 lb Weight Weight Reported by Patient Measurement Method Physical Exam General Appearance: Cooperative, No Acute Distress, drowsy but arousable HEENT: Atraumatic, Mucous Membr. moist/pink Cardiovascular: Regular Rate, Normal S1, Normal S2, No Murmurs Lungs: Clear to Auscultation, Normal Air Movement Abdomen: Normal Bowel Sounds, Soft, No Tenderness Extremities: No Clubbing, No Cyanosis, No Edema, Normal Pulses, No Tenderness/ Swelling Current Medications: Current Medications Sig/Amador Start time Last Medication Dose Route Stop Time Status Admin Amiodarone HCl 200 MG DAILY 04/10 1000 AC PO Amiodarone HCl 400 MG BID 04/03 1000 AC 04/03 PO 04/09 2201 1011 Amiodarone HCl 400 MG DAILY 04/02 1900 DC 04/02 PO 2101 Atorvastatin Calcium 40 MG DAILY 04/03 1000 AC PO Carbidopa/Levodopa 1 TAB 1930 04/03 1930 AC PO Carbidopa/Levodopa 1 TAB 0600,1000,1400,1630 04/03 1000 AC 04/03 PO 1009 Carbidopa/Levodopa 1 TAB SEE ADMIN CRITERIA 04/02 1515 DC PO Cefuroxime Sodium 500 MG ONCE ONE 04/02 1515 DC 04/02 PO 04/02 1516 1847 Diltiazem HCl 60 MG BID 04/02 2200 DC PO Diltiazem HCl 30 MG BID 04/02 2200 AC 04/03 PO 1015 Diltiazem HCl 125 MG Q16H 04/02 1515 DC Dextrose/Water 100 ML IV Diltiazem HCl 5 MG ONCE ONE 04/02 1315 DC 04/02 IV 04/02 1316 1358 Diltiazem HCl 5 MG ONCE ONE 04/02 1300 DC 04/02 IV 04/02 1301 1302 Diltiazem HCl 0 .STK-MED ONE 04/02 1202 DC .ROUTE Diltiazem HCl 10 MG ONCE ONE 04/02 1130 DC 04/02 IV 04/02 1131 1201 Docusate Sodium 100 MG BID 04/02 2200 AC 04/03 PO 1010 Entacapone 200 MG Q48 04/05 1000 AC 04/03 PO 1021 Entacapone 200 MG TID 04/02 1600 DC 04/02 PO 2102 Heparin Sodium 0 .STK-MED ONE 04/02 1354 DC (Porcine) .ROUTE Heparin Sodium 0 .STK-MED ONE 04/02 1353 DC (Porcine) .ROUTE Heparin Sodium 4,000 UNIT ONCE ONE 04/02 1330 DC 04/02 (Porcine) IV 04/02 1331 1358 Heparin Sodium 25,000 UNIT Q24H 04/02 1330 AC 04/02 (Porcine) IV 1347 Sodium Chloride 500 ML Magnesium Oxide 400 MG BID 04/02 1506 AC 04/03 PO 1009 Nitrofurantoin 100 MG BID 04/02 1507 DC 04/03 PO 04/03 1001 1010 Non-Formulary 0 SEE ADMIN CRITERIA 04/02 1530 DC Medication ANY Oxymetazoline HCl 2 SPRAY BID 04/02 2200 AC 04/03 AL 1012 Potassium Chloride 20 MEQ DAILY 04/03 1000 AC 04/03 PO 1009 Risperidone 0.25 MG BID PRN 04/03 0915 AC PO Last 24 Hrs of Lab/Maxwell Results Last 24 Hrs of Labs/Mics: Laboratory Tests 04/03/17 0648: Anion Gap 10, Estimated GFR > 60, BUN/Creatinine Ratio 30.0 H, Triglycerides 112, Cholesterol 132, LDL Cholesterol, Calc 85, HDL Cholesterol 25 L, Cholesterol/HDL Ratio 5 H, APTT 72 H, CBC w Diff NO MAN DIFF REQ, RBC 4.80, MCV 74.4 L, MCH 24.2 L, MCHC 32.5 L, RDW 15.4 H, MPV 9.3, Gran % 80.4 H, Lymphocytes % 13.2 L, Monocytes % 6.2, Eosinophils % 0.2, Basophils % 0, Absolute Granulocytes 5.6, Absolute Lymphocytes 0.9 L, Absolute Monocytes 0.4, Absolute Eosinophils 0, Absolute Basophils 0 04/02/17 1955: APTT > 120 *H 04/02/17 1419: Lactic Acid Cancelled 04/02/17 1355: Urine Color YEL, Urine Clarity CLEAR, Urine pH 6.0, Ur Specific [place] 1.025, Urine Protein 30 H, Urine Ketones TRACE H, Urine Nitrite NEG, Urine Bilirubin NEG, Urine Urobilinogen 0.2, Ur Leukocyte Esterase NEG, Ur Microscopic SEDIMENT EXAMINED, Urine RBC RARE, Urine WBC 1-3 H, Urine Mucus MANY H, Urine Hemoglobin NEG, Urine Glucose NEG 04/02/17 1140: Anion Gap 10, Estimated GFR > 60, BUN/Creatinine Ratio 30.0 H, Glucose 116 H, Lactic Acid 1.5, Calcium 8.8, Iron 88, TIBC 316, Ferritin 45.2, Total Bilirubin 0.7, AST 23, ALT 19 L, Alkaline Phosphatase 94, Troponin I 0.03, Total Protein 7.3, Albumin 3.7, Globulin 3.6, Albumin/Globulin Ratio 1.0 L, TSH 1.240, Free T4 1.28, Thyroxine (T4) 7.4, Total T3 0.98, PT 12.0, INR 1.14, APTT 30, CBC w Diff NO MAN DIFF REQ, RBC 5.30, MCV 73.2 L, MCH 24.3 L, MCHC 33.1, RDW 15.7 H , MPV 8.7, Gran % 90.8 H, Lymphocytes % 6.5 L, Monocytes % 2.7, Eosinophils % 0, Basophils % 0, Absolute Granulocytes 9.3 H, Absolute Lymphocytes 0.7 L, Absolute Monocytes 0.3, Absolute Eosinophils 0, Absolute Basophils 0 Microbiology 04/02 1557 NASOPHARYN: Influenza Virus A & B Rapid Smear - COMP 04/02 1155 BLOOD: Blood Culture - RECD 04/02 1140 BLOOD: Blood Culture - RECD Assessment/Plan Assessment: Patient is a 76-year-old male with past medical history of hypertension, hyperlipidemia, Parkinson's, dementia, multiple urinary tract infections, multiple falls, with previous admission in 2016 s/p fall, obstructive sleep apnea, loss of peripheral vision presenting this admission with generalized weakness and lethargy. Patient will be admitted to telemetry for management of the following: Patient remained in normal sinus rhythm on amiodarone 400 mg daily and diltiazem 30 mg twice a day. Patient was confused and agitated overnight and required a sitter. Patient was seen by neurology who recommended that he stop the nuplazid as it can cause qtc prolongation and arrhythmias and is not controlling his symptoms. Patient was continued on sinemet 25/100 with the addition of an extra dose of encapaone to receive with every other dose of sinemet. Patient's currently on anticoagulation with IV heparin with stable H&H. EKG and troponins negative. Thyroid studies within normal limits. 1. Atrial Fibrillation: Patient presents with what appears to be new onset A.fib. It appears based on the history and log of his HR, that he may have been in A.fib for > 48 hours. As such patient requires anticoagulation prior to any type of the intervention. Patient received IV Cardizem in the ED. - admit to tele - anticoagulation with IV heparin - continue diltiazem - ECHO pending - Monitor vitals 2. UTI History of recurrent UTIs. Currently completing a course of antibiotics for UTI. Today's U/A is negative. - complete the last 3 doses of nitrofurontoin 3. Microcytic anemia Likely patient has anemia 2/2 to GI bleed. - monitor vitals and signs of bleeding - guiac all stool 4. Parkinson's with delirum and demention Patient was scheduled to have an MRI by his neurologist per patient's . Per patient's mental status has declined. - neurology consult - MRI of the brain - unable to be completed due to confusion 5. Hypertension - started on cardizem - amlodipine held DVT PPx: Heparin drip Code: full code Diet: heart healthy diet Problem List: 1. New onset a-fib 2. Parkinson disease Pain Ratin Pain Location: n/a Pain Goal: Remain pain free Pain Plan: n/a Tomorrow's Labs & Rationales: cbc bep
[2017-04-03 14:35] VITALS: BP 144/90
--- NOTE | 2017-04-03 17:59 | ECHOCARDIOGRAM REPORT ---
YULY XAVIER Age: 76 : 1940 Gender: M Exam Date: 04/02/2017 19:18 Exam Location: [address] Ht (in): 68 Wt (lb): 178 BSA: 1.98 BP: 147 / 89 Ordering Physician: Mickie Spencer MD Referring Physician: Anam Hayes MD, PhD Technologist: Yamini Clarke [facility] Room Number: 189-02 Indications: AFIB/FLUTTER Rhythm: Sinus Technical Quality: poor FINDINGS Left Ventricle Normal left ventricular size with mild left ventricular hypertrophy. Normal systolic function with no obvious regional wall motion abnormalities. Diastolic filling pattern is consistent with impaired LV relaxation. The ejection fraction is visually estimated at 50%. Right Ventricle The right ventricle is normal in size and function. Right Atrium The right atrium is normal in size. Left Atrium The left atrium is normal in size. The interatrial septum is intact. Mitral Valve The mitral valve is normal in structure and function. There is mitral regurgitation. Aortic Valve Structurally normal aortic valve without significant sclerosis or stenosis. There is no aortic regurgitation. Tricuspid Valve The tricuspid valve is normal in structure and function. There is no tricuspid regurgitation. Pulmonic Valve Structurally normal pulmonic valve. There is no pulmonic regurgitation. Pericardium Normal pericardium without effusion. No pleural effusion. Great Vessels Normal aortic root dimension. The aortic arch and great vessels are well seen and are normal. CONCLUSIONS 1. Low normal EF of 50% with impaired LV relaxation based on limited views. 2. Mild left ventricular hypertrophy. 3. No significant valvular disease. Anam Hayes M.D. (Electronically Signed) Final Date: 03 April 2017 17:58 MEASUREMENTS (Male / Female) Normal Values 2D ECHO LV Diastolic Diameter PLAX 3.8 cm 4.2 - 5.9 / 3.9 - 5.3 cm LV Systolic Diameter PLAX 2.1 cm 2.1 - 4.0 cm LV Fractional Shortening PLAX 44.7 % 25 - 46 % LV Ejection Fraction 2D Teich 76.7 % IVS Diastolic Thickness 1.3 cm LVPW Diastolic Thickness 1.3 cm LV Relative Wall Thickness 0.7 RV Internal Dim ED PLAX 3.0 cm 1.9 - 3.8 cm LVOT Diameter 2.2 cm Aortic Root Diameter 3.8 cm LA Systolic Diameter LX 3.0 cm 3.0 - 4.0 / 2.7 - 3.8 cm LA Volume 42.0 cm 18 - 58 / 22 - 52 cm DOPPLER AV Peak Velocity 156.0 cm/s AV Peak Gradient 9.7 mmHg AV Mean Velocity 103.0 cm/s AV Mean Gradient 5.0 mmHg AV Velocity Time Integral 30.6 cm LVOT Peak Velocity 103.0 cm/s LVOT Peak Gradient 4.2 mmHg LVOT Mean Velocity 61.3 cm/s LVOT Mean Gradient 2.0 mmHg LVOT Velocity Time Integral 20.1 cm LVOT Stroke Volume 76.4 cm AV Area Cont Eq vti 2.5 cm AV Area Cont Eq pk 2.5 cm MV Peak Velocity 118.0 cm/s MV Peak Gradient 5.6 mmHg MV Mean Velocity 59.9 cm/s MV Mean Gradient 2.0 mmHg Mitral E Point Velocity 65.2 cm/s Mitral A Point Velocity 115.0 cm/s Mitral E to A Ratio 0.6 MV PHT Velocity 67.8 cm/s MV Deceleration [place] 372.0 cm/s MV Pressure Half Time 54.7 ms MV Area PHT 4.0 cm MV Deceleration Time 201.0 ms PV Peak Velocity 149.0 cm/s PV Peak Gradient 8.9 mmHg PV Mean Velocity 83.7 cm/s PV Mean Gradient 3.0 mmHg PV Velocity Time Integral 23.6 cm LV E' Lateral Velocity 6.5 cm/s Mitral E to LV E' Lateral Ratio 10.0 LV E' Septal Velocity 5.9 cm/s Mitral E to LV E' Septal Ratio 11.0
[2017-04-03 19:05] LABS: PTT 70 SEC (25-37)
--- NOTE | 2017-04-03 20:10 | PN- Cardiology ---
Subjective Subjective: * Patient is without complaints but remains confused. * sinus rhythm Objective Vital Signs and I&Os Vital Signs Date Time Temp Pulse Resp B/P B/P Pulse O2 O2 Flow FiO2 Mean Ox Delivery Rate 04/03 1600 97 Room Air 04/03 1435 98.3 72 20 144/90 96 Nasal 2.0L Cannula 04/03 1011 70 142/94 04/03 0701 98.5 77 20 180/110 95 Room Air 04/02 2212 98.9 63 97 Nasal 2.0L Cannula 04/02 2101 82 150/90 04/02 2100 82 150/90 04/02 2028 Nasal 2.0L Cannula Intake & Output 04/03 1600 04/03 0800 04/03 0000 04/02 1600 04/02 0800 04/02 0000 Intake Total 600 360 200 Output Total 400 150 250 500 Balance 200 210 -250 -300 Intake, IV 200 200 Intake, Oral 400 360 Output, Urine 400 150 250 500 Patient 170 lb 178 lb Weight Weight Reported by Patient Reported by Patient Measurement Method Physical Exam: General: WD/WN male in NAD; awake and responsive HEENT: NC/AT, PERRL, EOMI Neck: no JVD, no carotid bruit Heart: RRR w/o murmur Lungs: clear bilaterally Abdomen: soft, NT, +ve bowel sounds Extremities: no edema Neuro: decreased memory, muscle strength 5/5 thoroughout Assessment/Plan Assessment/Plan * Patient is in a sinus rhythm. Continue Amiodarone 400mg BID. * Begin aspirin 160mg daily. Follow his H/H. Continue telemetry? Yes
[2017-04-03 23:13] VITALS: BP 140/88
[2017-04-04 06:57] VITALS: BP 152/90
--- NOTE | 2017-04-04 10:58 | PN- Housestaff ---
Subjective Follow-up For: Atrial fibrillation Tele-Events Since Last Visit: NSR: HR from 68-78 Subjective: Patient was seen and examined today. Patient reports feeling much better. Patient's was at bedside. Notes patient's delusions appear to have subsided. Patient denies any chest pain, palpitations, SOB, n/v/d. Patient has not had a bowel movement since admission. Patient's brought in the [facility] today. No acute events overnight Review of Systems Constitutional: Reports: see HPI. Objective Last 24 Hrs of Vital Signs/I&O Vital Signs Date Time Temp Pulse Resp B/P B/P Pulse O2 O2 Flow FiO2 Mean Ox Delivery Rate 04/04 1024 144/72 04/04 1024 144/72 04/04 0824 94 Nasal 2.0L Cannula 04/04 0657 98.2 65 20 152/90 97 Nasal 2.0L Cannula 04/04 0000 Nasal 2.0L Cannula 04/03 2313 97.8 72 18 140/88 96 04/03 2022 70 144/90 04/03 2022 70 144/90 04/03 1600 97 Room Air 04/03 1435 98.3 72 20 144/ 96 Nasal 2.0L Cannula Intake & Output 04/04 1600 04/04 0800 04/04 0000 Intake Total 140 616.9 Output Total 550 Balance 140 66.9 Intake, IV 140 136.9 Intake, Oral 480 Output, Urine 550 Physical Exam General Appearance: Alert, Cooperative, No Acute Distress HEENT: Atraumatic, PERRLA, EOMI, Mucous Membr. moist/pink Cardiovascular: Regular Rate, Normal S1, Normal S2 Lungs: Normal Air Movement Abdomen: Normal Bowel Sounds, Soft, No Tenderness Extremities: No Clubbing, No Cyanosis, No Edema, Normal Pulses, No Tenderness/ Swelling Current Medications: Current Medications Sig/Amador Start time Last Medication Dose Route Stop Time Status Admin Amiodarone HCl 200 MG DAILY 04/10 1000 AC PO Amiodarone HCl 400 MG BID 04/03 1000 AC 04/04 PO 04/09 2200 1024 Aspirin 162 MG DAILY 04/04 1000 AC 04/04 PO 1025 Atorvastatin Calcium 40 MG DAILY 04/04 2199 AC PO Atorvastatin Calcium 40 MG DAILY 04/03 1000 DC PO Carbidopa/Levodopa 1 TAB 04/03 AC 04/03 PO 2017 Carbidopa/Levodopa 1 TAB 0600,1000,1400,1630 04/03 1000 AC 04/04 PO 1024 Diltiazem HCl 30 MG BID 04/02 2200 AC 04/04 PO 1024 Docusate Sodium 100 MG BID 04/04 1100 AC PO Docusate Sodium 100 MG BID 04/02 2200 AC 04/04 PO 1024 Entacapone 200 MG Q48 04/05 1000 AC 04/03 PO 1021 Heparin Sodium 25,000 UNIT Q24H 04/02 1330 AC 04/03 (Porcine) IV 1429 Sodium Chloride 500 ML Magnesium Oxide 400 MG BID 04/02 1506 AC 04/04 PO 1024 Non-Formulary 0 SEE ADMIN CRITERIA 04/04 1100 UNVr Medication ANY Oxymetazoline HCl 2 SPRAY BID 04/02 2200 AC 04/04 AL 1025 Potassium Chloride 20 MEQ DAILY 04/03 1000 AC 04/04 PO 1024 Risperidone 0.25 MG BID PRN 04/03 0915 AC PO Senna/Docusate Sodium 2 TAB DAILY 04/04 1100 UNVr PO Last 24 Hrs of Lab/Maxwell Results Last 24 Hrs of Labs/Mics: Laboratory Tests 04/03/17 1830: APTT 70 H Assessment/Plan Assessment: Patient is a 76-year-old male with past medical history of hypertension, hyperlipidemia, Parkinson's, dementia, multiple urinary tract infections, multiple falls, with previous admission in 2016 s/p fall, obstructive sleep apnea, loss of peripheral vision presenting this admission with generalized weakness and lethargy. Patient will be admitted to telemetry for management of the following: Patient remained in normal sinus rhythm on amiodarone 400 mg daily and diltiazem 30 mg twice a day. Patient's delusions appear to be resolving. Patient was seen by neurology who recommended that he stop the nuplazid as it can cause qtc prolongation and arrhythmias and is not controlling his symptoms. Patient's brought in the medication today so he can be weaned off. Patient was continued on sinemet 25/100 with the addition of an extra dose of encapaone to receive with every other dose of sinemet. Patient's currently on anticoagulation with IV heparin with stable H&H. EKG and troponins negative. Thyroid studies within normal limits. Patient's H&H is stable however his stool was positive on initial admission. Patient has not had a bowel movement since admission. Patient has a history of hemorrhoids 2/2 to chronic constipation reported by . Patient also has a history of falls and has baseline dementia. Patient's CHADSVASC score however is 3 which puts him at the moderate to high risk of stroke giving him a 3.2% risk of stroke per year and a 4.6% risk of stroke/TIA/systemic embolism per year. The benefit and risk of anticoagulation should be discussed further with the as patient's condition puts him at high risk of bleeding if he continues to fall. Another option is to consider is to continue high dose aspirin only and follow closely with cardiology. 1. Atrial Fibrillation: Patient presents with what appears to be new onset A.fib. It appears based on the history and log of his HR, that he may have been in A.fib for > 48 hours. As such patient requires anticoagulation prior to any type of the intervention. Patient received IV Cardizem in the ED. - admit to tele - anticoagulation with IV heparin - continue diltiazem 30 mg twice a day by mouth - continue amiodarone 400 mg daily - ECHO pending - Monitor vitals - started on aspirin 160mg daily 2. UTI History of recurrent UTIs. Currently completing a course of antibiotics for UTI. U/A and urine culture have been negative to date. - complete the last 3 doses of nitrofurontoin 3. Microcytic anemia Likely patient has anemia 2/2 to GI bleed. - monitor vitals and signs of bleeding - guiac all stool 4. Parkinson's with delirum and demention Patient was scheduled to have an MRI by his neurologist per patient's . Per patient's mental status has declined. - neurology consult - MRI of the brain - unable to be completed due to confusion 5. Hypertension - started on cardizem - amlodipine held 6. Constipation - started on colace and senna DVT PPx: Heparin drip Code: full code Diet: heart healthy diet Problem List: 1. New onset a-fib 2. Parkinson disease Pain Ratin Pain Location: n/a Pain Goal: Remain pain free Pain Plan: n/a Tomorrow's Labs & Rationales: cbc - on IV heparin
[2017-04-04 14:39] LABS: PTT 71 SEC (25-37)
[2017-04-04 14:52] VITALS: BP 132/80
--- NOTE | 2017-04-04 20:50 | PN- Cardiology ---
Subjective Subjective: * No complaints. Patient appears to be more lucid and appropriately responsive to questions today. * sinus rhythm Objective Vital Signs and I&Os Vital Signs Date Time Temp Pulse Resp B/P B/P Pulse O2 O2 Flow FiO2 Mean Ox Delivery Rate 04/04 1723 Nasal 2.0L Cannula 04/04 1452 98.9 68 20 132/80 97 Nasal 2.0L Cannula 04/04 1024 144/72 04/04 1024 144/72 04/04 0824 94 Nasal 2.0L Cannula 04/04 0657 98.2 65 20 152/90 97 Nasal 2.0L Cannula 04/04 0000 Nasal 2.0L Cannula 04/03 2313 97.8 72 18 140/88 96 Intake & Output 04/04 1600 04/04 0800 04/04 0000 04/03 1600 04/03 0800 04/03 0000 Intake Total 560 140 616.9 600 360 Output Total 550 550 400 150 250 Balance 10 140 66.9 200 210 -250 Intake, IV 160 140 136.9 200 Intake, Oral 400 480 400 360 Output, Urine 550 550 400 150 250 Patient 170 lb Weight Weight Reported by Patient Measurement Method Physical Exam: General: WD/WN male in NAD; awake and responsive HEENT: NC/AT, PERRL, EOMI Neck: no JVD, no carotid bruit Heart: RRR w/o murmur Lungs: clear bilaterally Abdomen: soft, NT, +ve bowel sounds Extremities: no edema Neuro: decreased memory, muscle strength 5/5 thoroughout Assessment/Plan Assessment/Plan * Patient is in a sinus rhythm. Continue Amiodarone 400mg BID. * Begin aspirin 160mg daily. Follow his H/H. * Anticipate discharge tomorrow unless his H/H continues to fall. Continue telemetry? Yes
[2017-04-04 22:38] VITALS: BP 146/70
[2017-04-05 04:19] LABS: PTT 64 SEC (25-37)
[2017-04-05 06:00] VITALS: BP 118/74
--- NOTE | 2017-04-05 07:53 | PN- Housestaff ---
Subjective Follow-up For: Atrial fibrillation Generalized weakness Tele-Events Since Last Visit: Sinus rhythm with heart rate between 69-80, bigeminy/trigeminy Subjective: Patient was seen and examined today. Patient reports feeling better however continues to feel weak today. Patient denies any chest pain, palpitations, dizziness, lightheadedness, abdominal pain, nausea/vomiting. No acute events overnight. Review of Systems Constitutional: Reports: see HPI. Objective Last 24 Hrs of Vital Signs/I&O Vital Signs Date Time Temp Pulse Resp B/P B/P Pulse O2 O2 Flow FiO2 Mean Ox Delivery Rate 04/05 0600 98.0 67 20 118/74 96 04/04 2238 97.9 71 18 146/70 95 04/04 2123 68 132/80 04/04 2123 68 132/80 04/04 210 Nasal 2.0L Cannula 04/04 1723 Nasal 2.0L Cannula 04/04 1452 98.9 68 20 132/80 97 Nasal 2.0L Cannula 04/04 1024 144/72 04/04 1024 144/72 Intake & Output 04/05 1600 04/05 0800 04/05 0000 Intake Total 440 Output Total 475 Balance 440 -475 Intake, IV 200 Intake, Oral 240 Number 1 Bowel Movements Output, Urine 475 Physical Exam General Appearance: Alert, Cooperative, No Acute Distress HEENT: Atraumatic, Mucous Membr. moist/pink Cardiovascular: Regular Rate, Normal S1, Normal S2 Lungs: Normal Air Movement Abdomen: Normal Bowel Sounds, Soft, No Tenderness Neurological: Normal Speech Extremities: No Clubbing, No Cyanosis, No Edema, Normal Pulses, No Tenderness/ Swelling Vascular: Normal Pulses, Pulses Symmetrical Current Medications: Current Medications Sig/Amador Start time Last Medication Dose Route Stop Time Status Admin Amiodarone HCl 200 MG DAILY 04/10 1000 AC PO Amiodarone HCl 400 MG BID 04/03 1000 AC 04/04 PO 04/09 Aspirin 162 MG DAILY 04/04 1000 AC 04/04 PO 102 Atorvastatin Calcium 40 MG DAILY 04/04 2199 AC 04/04 PO 2123 Bisacodyl 10 MG DAILY PRN 04/04 1814 AC ME Bisacodyl 5 MG DAILY 04/04 180 AC 04/04 PO 2123 Carbidopa/Levodopa 1 TAB 1930 04/03 193 AC 04/04 PO 2123 Carbidopa/Levodopa 1 TAB 0600,1000,1400,1630 04/03 1000 AC 04/05 PO 0746 Diltiazem HCl 30 MG BID 04/02 2200 AC 04/04 PO 2124 Docusate Sodium 100 MG BID 04/04 1100 AC 04/04 PO 2124 Docusate Sodium 100 MG BID 04/02 2200 DC 04/04 PO 1024 Entacapone 200 MG Q48 04/05 1000 DC 04/03 PO 1021 Entacapone 200 MG 0600,1400,1900 04/04 1900 AC 04/05 PO 0746 Entacapone 200 MG SEE ADMIN CRITERIA 04/04 1600 DC PO Heparin Sodium 25,000 UNIT Q24H 04/02 1330 DC 04/04 (Porcine) IV 1506 Sodium Chloride 500 ML Magnesium Oxide 400 MG BID 04/02 1506 AC 04/04 PO 2124 Oxymetazoline HCl 2 SPRAY BID 04/02 2199 AC 04/04 AL 2239 Patient Medication 1 ED ONE ONE 04/04 1200 DC Teaching ED 04/04 1201 Polyethylene Glycol 17 GM DAILY 04/04 1801 AC 04/04 PO 2124 Potassium Chloride 20 MEQ DAILY 04/03 1000 AC 04/04 PO 1024 Risperidone 0.25 MG BID PRN 04/03 0915 AC PO Senna/Docusate Sodium 2 TAB DAILY 04/04 1100 AC 04/04 PO 1148 Last 24 Hrs of Lab/Maxwell Results Last 24 Hrs of Labs/Mics: Laboratory Tests 04/05/17 1049: CBC w Diff NO MAN DIFF REQ, RBC 4.57 L, MCV 74.1 L, MCH 24.2 L, MCHC 32.6 L, RDW 15.6 H, MPV 9.9, Gran % 82.1 H, Lymphocytes % 11.0 L, Monocytes % 5.9, Eosinophils % 0.9, Basophils % 0.1, Absolute Granulocytes 7.1 H, Absolute Lymphocytes 1.0 L, Absolute Monocytes 0.5, Absolute Eosinophils 0.1, Absolute Basophils 0 04/05/17 0320: APTT 64 H Assessment/Plan Assessment: Patient is a 76-year-old male with past medical history of hypertension, hyperlipidemia, Parkinson's, dementia, multiple urinary tract infections, multiple falls, with previous admission in 2016 s/p fall, obstructive sleep apnea, loss of peripheral vision presenting this admission with generalized weakness and lethargy. Patient will be admitted to telemetry for management of the following: Patient continues to remain in normal sinus rhythm on amiodarone 400 mg BID and diltiazem 30 mg BID. Per cardiology recommendations, IV heparin was stopped and as patient has increased risk of bleeding from multiple falls, he will be on aspirin only for stroke prevention despite having a moderate to high risk of stroke. This has been discussed with his . Patient's neurologic medications: patient is to continue sinemet 25/100 five times daily and entacapone three times daily with every other dose of sinemet ( 1st dose in AM, 3rd dose in the afternoon and last dose in the evening). I spoke with Dr. Alamo this morning in regards to the nuplazid. Patient is to receive one more dose of nuplazid today and then discontinue it tomorrow. Patient was seen by physical therapy today. Patient requires an assist of 2 and is below his baseline. PT has recommended short-term rehab. 1. Atrial Fibrillation: Patient presents with what appears to be new onset A.fib. It appears based on the history and log of his HR, that he may have been in A.fib for > 48 hours. As such patient requires anticoagulation prior to any type of the intervention. Patient received IV Cardizem in the ED. - admit to tele - anticoagulation with IV heparin - continue diltiazem 30 mg twice a day by mouth - continue amiodarone 400 mg daily - ECHO pending - Monitor vitals - started on aspirin 160mg daily 2. UTI - resolved History of recurrent UTIs. Currently completing a course of antibiotics for UTI. U/A and urine culture have been negative to date. - completed the last 3 doses of nitrofurontoin 3. Microcytic anemia Likely patient has anemia 2/2 to GI bleed. - monitor vitals and signs of bleeding - guiac all stool 4. Parkinson's with delirum and demention Patient was scheduled to have an MRI by his neurologist per patient's . Per patient's mental status has declined. - neurology consulted - MRI of the brain - unable to be completed due to confusion - tapering off nuplazid. Last dose today. 5. Hypertension - started on cardizem - amlodipine held 6. Constipation - started on colace and senna DVT PPx: Heparin drip stopped today, ALPs Code: full code Diet: heart healthy diet Dispo: possible discharge tomorrow pending bed availablility at [facility] [[email or web address]] Problem List: 1. New onset a-fib 2. Parkinson disease Pain Ratin Pain Location: n/a Pain Goal: Remain pain free Pain Plan: n/a Tomorrow's Labs & Rationales: cbc bep
[2017-04-05] MEDS ORDERED: CARDIZEM30 M1 PO (08:54)
[2017-04-05] MEDS ORDERED: AMIODARONE HCL200 M1 PO (08:54)
[2017-04-05] MEDS ORDERED: ASPIRIN81 M4 PO (08:54)
--- NOTE | 2017-04-05 08:59 | Patient Discharge Instructions ---
Discharge Instructions General Discharge Information You were seen/treated for: Atrial Fibrillation Special Instructions: 1. Please follow up with your primary care physician, distiller and neurologist within 1 week of discharge 2. Please note the new medication changes - you have been started on amiodarone and aspirin - please stop taking the nuplazid and follow up with the neurologist 3. Please call your doctor or come to the hospital if you experience chest pain, increased weakness, confusion, hallucinations Diet Continue normal diet: No Recommended Diet: Heart Healthy Activity Full Activity/No Limits: No Activity Self Limited: Yes Acute Coronary Syndrome Inclusion Criteria At DC or during hospital stay patient has or had the following: ACS DIAGNOSIS No Discharge Core Measures Meds if any: Prescribed or Continued at Discharge Meds if any: NOT Prescribed or Continued at Discharge Congestive Heart Failure Inclusion Criteria At DC or during hospital stay patient has or had the following: CHF DIAGNOSIS No Discharge Core Measures Meds if any: Prescribed or Continued at Discharge Meds if any: NOT Prescribed or Continued at Discharge Cerebrovascular accident Inclusion Criteria At DC or during hospital stay patient has or had the following: CVA/TIA Diagnosis No Discharge Core Measures Meds if any: Prescribed or Continued at Discharge Meds if any: NOT Prescribed or Continued at Discharge Venous thromboembolism Inclusion Criteria VTE Diagnosis No VTE Type NONE VTE Confirmed by (Test) NONE Discharge Core Measures - Per Current guidelines, there needs to be overlap - treatment for the first 5 days of Warfarin therapy. - If discharged on Warfarin prior to 5 days of - overlap therapy, the patient will need to be - assessed for post discharge needs including - *Post discharge parental anticoagulation - *Warfarin and/or parental anticoagulation education - *Follow up date to check INR post discharge At least 5 days overlap therapy as Inpatient No Meds if any: Prescribed or Continued at Discharge Note: Overlap Therapy is Warfarin and Anticoagulant Meds if any: NOT Prescribed or Continued at Discharge
[2017-04-05 12:31] LABS: ABSOLUTE BASOPHIL COUNT 0 /CUMM (0.0-0.2); ABSOLUTE EOSINOPHIL COUNT 0.1 /CUMM (0.0-0.7); ABSOLUTE GRANULOCYTE CT 7.1 /CUMM (1.4-6.5); ABSOLUTE MONOCYTE COUNT 0.5 /CUMM (0.10-0.60); BASOPHIL % 0.1 % (0.0-2.0); EOSINOPHIL % 0.9 % (0-5); GRANULOCYTE % 82.1 % (42.2-75.2); HEMATOCRIT 33.8 % (42-52); MEAN CORPUSCULAR HGB 24.2 PG (27.0-31.0); MEAN CORPUSCULAR HGB CONC 32.6 G/DL (33.0-37.0); MEAN CORPUSCULAR VOLUME 74.1 FL (80.0-94.0); MEAN PLATELET VOLUME 9.9 FL (7.4-10.4); PLATELET COUNT 197 /CUMM (130-400); RBC DISTRIBUTION WIDTH 15.6 % (11.5-14.5); RED BLOOD CELL CT 4.57 /CUMM (4.70-6.10); WHITE BLOOD CELL COUNT 8.7 /CUMM (4.8-10.8)
--- NOTE | 2017-04-05 13:56 | Discharge Summary ---
Visit Information Visit Dates Admission Date: 04/02/17 Discharge Date: 04/06/2017 Hospital Course Course Attending Physician: Freddy SIMS PHD,Anam Rios Primary Care Physician: Tiny SIMS,[facility] Course: Patient is a 76-year-old male with past medical history of Parkinson's disease complicated by delirium/dementia, hypertension, hyperlipidemia, recurrent UTI infection, history of multiple falls, loss of peripheral vision, snoring, ? Obstructive sleep apnea, presented with chief complaints of generalized weakness and difficulty waking him up in the morning. ED course Vital signs at the time of admission temperature 98.3, pulse 129, respiratory rate 18, blood pressure 155/96, SPO2 95% on room air. Heart rate was 140s. Blood workup showed hemoglobin 12.9, MCV 73.2, platelet count 251, sodium 142, potassium 4.1, chloride 104, anion gap 10, BUN 21, creatinine 0.7, BUN/ creatinine 30.0, glucose 116,AST 23, ALT 19, alkaline phosphatase 94, troponin I 0.03, PT/INR 12.0/1.14, APTT 30, urinalysis showed urine protein 30, ketones trace, WBC 93, mucus many, chest x-ray did not show any acute cardiopulmonary abnormality. Atrial fibrillation with rapid ventricular rate - He admitted the patient to telemetry floor. We checked stool for guaiac and it was positive. We started patient on Cardizem drip and heparin drip. We regularly monitored the hemoglobin. Patient converted to normal sinus rhythm. Echocardiogram showed LVEF 50% with impaired left ventricular relaxation, mild left ventricular hypertrophy.We started him on tablet amiodarone 400mg BID for a week (04/02/2017 - 04/11/2017) and thereafter with 200mg daily. We started patient on tablet aspirin 160 mg daily.We advised him to follow brick picker within a week of discharge.We advised him to have regular monitoring of hemoglobin, and follow-up with PCP. This is We did took the opinion from neurologist, and ra down the Nuplazid, and stopped at the time of discharge. Cough with chest congestion -post viral bronchitis - Patient already had a course of cefuroxime, we completed a course of antibiotics.Flu test was negative. Chest x-ray did not show any cardiopulmonary abnormality. Patient remained afebrile throughout the hospital course. History of recurrent UTI He completed a course of nitrofurantoin. UA did not show any evidence of infection WBC was 1-3. Hypertension As patient was started on Cardizem we hold the amlodipine. Microcytic hypochromic anemia Patient's hemoglobin was 12.9 and MCV was 73.2 His stools were guaiac positive.Iron panel showed serum iron 88, TIBC 316, serum ferritin 45. We will monitor hemoglobin as an outpatient. Parkinsonism with delirium/dementia We continued all his medication. MRI brain cannt be done due to patients tremors. Allergies: Coded Allergies: No Known Allergies (02/06/16) Disposition Summary Disposition Principal Diagnosis: New onset atrial fibrillation with rapid ventricular rate Additional Diagnosis: History of Parkinson's disease complicated by delirium/dementia, Hypertension, Hyperlipidemia, Recurrent UTI infection, History of multiple falls, Loss of peripheral vision, History of snoring ?Obstructive sleep apnea Discharge Disposition: SNF Discharge Instructions General Discharge Information Code Status: Full Code Patient's Diet: Heart healthy diet Patient's Activity: As tolerated, with fall precaution Follow-Up Instructions/Appts: Please follow-up with your PCP within a week of discharge Please follow-up with your brick picker within a week of discharge Please check the blood pressure and bring the log to the PCP Watch for the bleeding Check CBC after 1 week of discharge We stopped on Nupalzid, its side effect is, QT prolongation and arrhythmia, after discussing the neurologist. Medications at Discharge Discharge Medications: Stop taking the following medications: Amlodipine Besylate (Amlodipine Besylate) 5 MG TABLET ORAL 0900 Qty = 90 Pimavanserin Tartrate (Nuplazid) 17 MG TABLET ORAL 0700 Qty = 60 Continue taking these medications: Entacapone (Entacapone) 200 MG TABLET 1 Tablet ORAL THREE TIMES DAILY Qty = 90 Comments: LAST GIVEN 02/08/16 @ 1638 Atorvastatin Calcium (Atorvastatin Calcium) 40 MG TABLET 1 Tablet ORAL DAILY Qty = 10 Comments: LAST GIVEN 02/08/16 @ 1638 Carbidopa/Levodopa (Carbidopa-Levodopa 25-100 Tab) 25 MG-100 MG TABLET 1 Tablet ORAL 5XDAILY Qty = 150 Comments: SINEMET LAST GIVEN 02/08/16 @ 1751 Docusate Sodium (Colace) 100 MG CAPSULE 1 Capsule ORAL TWICE DAILY Comments: NOT GIVEN IN HOSPITAL Magnesium Oxide (Magnesium) 400 MG CAPSULE 1 Capsule ORAL TWICE DAILY Comments: NOT GIVEN IN HOSPITAL Potassium Chloride (Potassium Chloride) 20 MEQ TAB.ER.PRT 1 Tablet ORAL DAILY Comments: NOT GIVEN Start taking the following new medications: Amiodarone (Cordarone) 200 MG TAB 0 ORAL SEE INSTRUCTIONS Qty = 60 No Refills Instructions: Please take 2 tabs twice daily for 4 more days Then please take 1 tab twice daily Diltiazem HCl (Cardizem) 30 MG TABLET 1 Tablet ORAL TWICE DAILY Qty = 60 No Refills Aspirin (Aspirin*) 81 MG TAB.CHEW 162 Milligram ORAL DAILY Qty = 60 No Refills Copies To: Caty Franks MD Qty = 60 No Refills Copies To: Caty Franks MD
[2017-04-05 14:33] VITALS: BP 122/78
--- NOTE | 2017-04-05 18:41 | PN- Cardiology ---
Subjective Subjective: * No complaints. A bit more communicative today although some confusion persists. * sinus rhythm Objective Vital Signs and I&Os Vital Signs Date Time Temp Pulse Resp B/P B/P Pulse O2 O2 Flow FiO2 Mean Ox Delivery Rate 04/05 1433 97.5 71 20 122/78 94 Room Air 04/05 1214 Nasal 2.0L Cannula 04/05 0845 67 118/74 04/05 0845 67 118/74 04/05 0800 Nasal 2.0L Cannula 04/05 0600 98.0 67 20 118/74 96 04/04 2238 97.9 71 18 146/70 95 04/044 68 132/80 04/04 2123 68 132/80 04/04 210 Nasal 2.0L Cannula Intake & Output 04/05 1600 04/05 0800 04/05 0000 04/04 1600 04/04 0800 04/04 0000 Intake Total 600 440 560 140 616.9 Output Total 100 475 550 550 Balance 500 440 -475 10 140 66.9 Intake, IV 200 160 140 136.9 Intake, Oral 600 240 400 480 Number 1 1 Bowel Movements Output, Urine 100 475 550 550 Physical Exam: General: WD/WN male in NAD; awake and responsive HEENT: NC/AT, PERRL, EOMI Neck: no JVD, no carotid bruit Heart: RRR w/o murmur Lungs: clear bilaterally Abdomen: soft, NT, +ve bowel sounds Extremities: no edema Neuro: decreased memory, muscle strength 5/5 thoroughout Assessment/Plan Assessment/Plan * Patient is in a sinus rhythm. Continue Amiodarone 400mg BID to complete load and then switch to 200mg daily. * Begin aspirin 160mg daily. * Discharge today with follow up in the office in one week. Continue telemetry? No
[2017-04-05 22:19] VITALS: BP 134/90
[2017-04-06 06:30] VITALS: BP 150/98
[2017-04-06 08:13] LABS: ABSOLUTE BASOPHIL COUNT 0 /CUMM (0.0-0.2); ABSOLUTE EOSINOPHIL COUNT 0.2 /CUMM (0.0-0.7); ABSOLUTE GRANULOCYTE CT 4.4 /CUMM (1.4-6.5); ABSOLUTE LYMPH COUNT 1.3 /CUMM (1.2-3.4); ABSOLUTE MONOCYTE COUNT 0.4 /CUMM (0.10-0.60); BASOPHIL % 0.2 % (0.0-2.0); EOSINOPHIL % 2.5 % (0-5); GRANULOCYTE % 69.8 % (42.2-75.2); HEMATOCRIT 35.7 % (42-52); MEAN CORPUSCULAR HGB 24.3 PG (27.0-31.0); MEAN CORPUSCULAR HGB CONC 32.3 G/DL (33.0-37.0); MEAN CORPUSCULAR VOLUME 75.3 FL (80.0-94.0); MEAN PLATELET VOLUME 9.5 FL (7.4-10.4); PLATELET COUNT 192 /CUMM (130-400); RBC DISTRIBUTION WIDTH 15.6 % (11.5-14.5); RED BLOOD CELL CT 4.73 /CUMM (4.70-6.10); WHITE BLOOD CELL COUNT 6.3 /CUMM (4.8-10.8)
--- NOTE | 2017-04-06 08:37 | PN- Housestaff ---
Subjective Follow-up For: Atrial fibrillation Generalized weakness Subjective: Patient was seen and examined today. Patient reports feeling better much better today. Patient's noticed bilateral eye crusting. Patient is not complaining of any eye pain or itching. Patient denies any chest pain, palpitations, dizziness, lightheadedness, abdominal pain, nausea/vomiting. No acute events overnight. Review of Systems Constitutional: Reports: see HPI. Objective Last 24 Hrs of Vital Signs/I&O Vital Signs Date Time Temp Pulse Resp B/P B/P Pulse O2 O2 Flow FiO2 Mean Ox Delivery Rate 04/06 1725 66 150/98 04/06 1242 98.3 68 20 150/98 04/06 0828 68 150/98 04/06 0828 68 150/98 04/06 0630 98.3 68 20 150/98 94 04/05 2240 64 134/90 04/05 2239 65 134/90 04/05 2219 97.7 63 22 134/90 94 Room Air Intake & Output 04/06 1600 04/06 0800 04/06 0000 Intake Total 600 240 Output Total 300 175 225 Balance 300 65 -225 Intake, Oral 600 240 Output, Urine 300 175 225 Physical Exam General Appearance: Alert, Cooperative, No Acute Distress HEENT: Atraumatic, PERRLA, EOMI, Mucous Membr. moist/pink, mild conjunctival redness seen bilaterally, no crusting or discharge noted Cardiovascular: Regular Rate, Normal S1, Normal S2, No Murmurs Lungs: Clear to Auscultation, Normal Air Movement Abdomen: Normal Bowel Sounds, Soft, No Tenderness Extremities: No Clubbing, No Cyanosis, No Edema, Normal Pulses, No Tenderness/ Swelling Vascular: Normal Pulses, Pulses Symmetrical Current Medications: Current Medications Sig/Amador Start time Last Medication Dose Route Stop Time Status Admin Amiodarone HCl 200 MG DAILY 04/10 1000 AC PO Amiodarone HCl 400 MG BID 04/03 1000 AC 04/06 PO 04/09 220 1725 Artificial Tears 2 GTT 4 TIMES/DAY 04/06 1130 AC 04/06 OPH 1721 Aspirin 162 MG DAILY 04/04 1000 AC 04/06 PO 0827 Atorvastatin Calcium 40 MG DAILY 04/04 2200 AC 04/06 PO 0828 Bisacodyl 10 MG DAILY PRN 04/04 1815 AC [place] Bisacodyl 5 MG DAILY 04/04 1801 AC 04/06 PO 0830 Carbidopa/Levodopa 1 TAB 1930 04/03 1930 AC 04/05 PO 2239 Carbidopa/Levodopa 1 TAB 0600,1000,1400,1630 04/03 1000 AC 04/06 PO 1703 Diltiazem HCl 30 MG BID 04/02 2200 AC 04/06 PO 0828 Docusate Sodium 100 MG BID 04/04 1100 AC 04/06 PO 0829 Entacapone 200 MG 0600,1400,1900 04/04 1900 AC 04/06 PO 1720 Magnesium Oxide 400 MG BID 04/02 1506 AC 04/06 PO 0828 Oxymetazoline HCl 2 SPRAY BID 04/02 220 AC 04/06 AL 0830 Patient Medication 1 ED ONE ONE 04/06 1430 DC 04/06 Teaching ED 04/06 1431 1452 Polyethylene Glycol 17 GM DAILY 04/04 1801 AC 04/06 PO 0830 Potassium Chloride 20 MEQ DAILY 04/03 1000 AC 04/06 PO 0828 Risperidone 0.25 MG BID PRN 04/03 0915 AC 04/05 PO 2240 Senna/Docusate Sodium 2 TAB DAILY 04/04 1100 AC 04/06 PO 0828 Last 24 Hrs of Lab/Maxwell Results Last 24 Hrs of Labs/Mics: Laboratory Tests 04/06/17 0625: Anion Gap 8, Estimated GFR > 60, BUN/Creatinine Ratio 16.3, CBC w Diff NO MAN DIFF REQ, RBC 4.73, MCV 75.3 L, MCH 24.3 L, MCHC 32.3 L, RDW 15.6 H, MPV 9.5 , Gran % 69.8, Lymphocytes % 21.0, Monocytes % 6.5, Eosinophils % 2.5, Basophils % 0.2, Absolute Granulocytes 4.4, Absolute Lymphocytes 1.3, Absolute Monocytes 0.4, Absolute Eosinophils 0.2, Absolute Basophils 0 Assessment/Plan Assessment: Patient is a 76-year-old male with past medical history of hypertension, hyperlipidemia, Parkinson's, dementia, multiple urinary tract infections, multiple falls, with previous admission in 2016 s/p fall, obstructive sleep apnea, loss of peripheral vision presenting this admission with generalized weakness and lethargy. Patient will be admitted to telemetry for management of the following: Patient continues to remain in normal sinus rhythm on amiodarone 400 mg BID and diltiazem 30 mg BID. Per cardiology recommendations, IV heparin was stopped and as patient has increased risk of bleeding from multiple falls, he will be on aspirin only for stroke prevention despite having a moderate to high risk of stroke. This has been discussed with his . Patient's neurologic medications: patient is to continue sinemet 25/100 five times daily and entacapone three times daily with every other dose of sinemet ( 1st dose in AM, 3rd dose in the afternoon and last dose in the evening). I spoke with Dr. Alamo this morning in regards to the nuplazid. Patient will stop nuplazid medication today. Patient was seen by physical therapy today. Patient requires an assist of 2 and is below his baseline. PT has recommended short-term rehab. Patient has a bed available today at [facility]. 1. Atrial Fibrillation: Patient presents with what appears to be new onset A.fib. It appears based on the history and log of his HR, that he may have been in A.fib for > 48 hours. As such patient requires anticoagulation prior to any type of the intervention. Patient received IV Cardizem in the ED. - admit to tele - discontinued IV heparin - continue diltiazem 30 mg twice a day by mouth - continue amiodarone 400 mg daily - Monitor vitals - continue aspirin 160mg daily 2. UTI - resolved History of recurrent UTIs. Currently completing a course of antibiotics for UTI. U/A and urine culture have been negative to date. - completed the last 3 doses of nitrofurontoin 3. Microcytic anemia Likely patient has anemia 2/2 to GI bleed. - monitor vitals and signs of bleeding - guiac all stool 4. Parkinson's with delirum and demention Patient was scheduled to have an MRI by his neurologist per patient's . Per patient's mental status has declined. - neurology consulted - MRI of the brain - unable to be completed due to confusion - tapered off nuplazid 5. Hypertension - started on cardizem - amlodipine held 6. Constipation - started on colace and senna DVT PPx: ALPs Code: full code Diet: heart healthy diet Dispo: discharge to [facility] today Problem List: 1. New onset a-fib Pain Ratin Pain Location: n/a Pain Goal: Remain pain free Pain Plan: n/a Tomorrow's Labs & Rationales: n/a- discharge today
[2017-04-06 12:42] VITALS: BP 150/98
[2017-04-06 17:25] VITALS: BP 150/98
--- NOTE | 2017-04-06 18:05 | PN- Cardiology ---
Subjective Subjective: * No complaints. A bit confused today but without complaints. * sinus rhythm Objective Vital Signs and I&Os Vital Signs Date Time Temp Pulse Resp B/P B/P Pulse O2 O2 Flow FiO2 Mean Ox Delivery Rate 04/06 1725 66 150/98 04/06 1242 98.3 68 20 150/98 04/06 0828 68 150/98 04/06 0828 68 150/98 04/06 0630 98.3 68 20 150/98 94 04/05 2240 64 134/90 04/05 2239 65 134/90 04/05 2219 97.7 63 22 134/90 94 Room Air Intake & Output 04/06 1600 04/06 0800 04/06 0000 04/05 1600 04/05 0800 04/05 0000 Intake Total 600 240 600 440 Output Total 300 175 225 100 475 Balance 300 65 -225 500 440 -475 Intake, IV 200 Intake, Oral 600 240 600 240 Number 1 1 Bowel Movements Output, Urine 300 175 225 100 475 Physical Exam: Physical Exam: General: WD/WN male in NAD; awake and responsive Neck: no JVD, no carotid bruit Heart: RRR w/o murmur Lungs: clear bilaterally Extremities: no edema Neuro: decreased memory, muscle strength 5/5 thoroughout Assessment/Plan Assessment/Plan Assessment/Plan * Patient is in a sinus rhythm. Continue Amiodarone 400mg BID to complete load and then switch to 200mg daily. * Begin aspirin 160mg daily. * Discharge today with follow up in the office in one week. Continue telemetry? No
== END 2017-04-06 18:28 | DRG 309 ==
LOC: ERH 10:52 → ERHI 13:38 → 1NO 13:38 → ENRESERV 15:17 → ENTRNSPT 16:38 → EDTRNSPT 17:03 → EDTRNSPTSTS 17:03 → 1NO 17:24 → CMPTRNSPT 17:30 → 1NO 04-03 00:10 → ENPENDDIS 04-06 13:27 → 1NO 04-06 18:28
PROVIDERS: Internal Medicine Adolescent Medicine; Internal Medicine Interventional Cardiology; Physician Assistant Medical; Student in an Organized Health Care Education/Training Program
DX: I48.0 Paroxysmal atrial fibrillation (principal); N39.0 Urinary tract infection, site not specified; F05 Delirium due to known physiological condition; G20 Parkinson's disease; R44.3 Hallucinations, unspecified; F02.80 Dementia in other diseases classified elsewhere, unspecified severity, without behavioral disturbance, psychotic disturbance, mood disturbance, and anxiety; I10 Essential (primary) hypertension; G47.33 Obstructive sleep apnea (adult) (pediatric); D50.9 Iron deficiency anemia, unspecified; K59.00 Constipation, unspecified; H54.7 Unspecified visual loss; E78.5 Hyperlipidemia, unspecified; Z87.891 Personal history of nicotine dependence
CPT/HCPCS: 1NP; 1NSP; 70551; 36415; 36592; 71045; 81001; 82436; 87040; 87804; 87804-59; 93005; 93010; 93306; 96374; 96376; 97110-GO; 97161-GP; 97530-GO; 99291; J1644; J3490

== ENCOUNTER 2017-05-02 14:53 | Emergency (ER) | payer OTHER, MEDICARE ==
[~2017-05-02] VITALS: Ht 172.7 cm; Wt 77.1 kg
[~2017-05-02 14:53] MED LIST changes: +AMIODARONE HCL200 M1 PO; +ASPIRIN81 M4 PO; +CARDIZEM30 M1 PO; +CEFUROXIME500 MG PO; +NITROFURANTOIN100 M6 PO
--- NOTE | 2017-05-02 15:07 | ED AMS/SEIZURE/WEAK/DIZZY ---
See Addendum History of Present Illness General Chief Complaint: General Adult Stated Complaint: WEAKNESS Source: patient, family, old records Exam Limitations: dementia Vital Signs & Intake/Output Vital Signs & Intake/Output Vital Signs Date Time Temp Pulse Resp B/P B/P Pulse O2 O2 Flow FiO2 Mean Ox Delivery Rate 05/03 1227 96.8 72 19 160/72 95 Room Air 05/03 1000 98.8 71 20 182/90 05/03 0900 Room Air 2.0L 05/03 0551 71 20 182/90 95 Room Air 05/03 0225 68 18 170/90 96 Room Air 05/03 0005 66 18 180/100 96 Room Air 05/02 2227 98.8 59 18 169/94 05/02 2128 98.8 59 18 169/94 96 Room Air 05/02 1854 97.9 64 16 162/92 90 Room Air 05/02 1506 95 Nasal 2.0L Cannula 05/02 1456 97.9 74 18 134/90 90 Room Air ED Intake and Output 05/03 0000 05/02 1200 Intake Total Output Total 165 Balance -165 Output, Urine 165 Patient 170 lb Weight Weight Reported by Patient Measurement Method Allergies Coded Allergies: No Known Allergies (02/06/16) Reconcile Medications Amiodarone (Cordarone) 200 MG TAB 1 TAB PO QAM HEART (Reported) Aspirin (Ecotrin*) 81 MG TABLET.DR 1 TAB PO DAILY HEART/BLOOD (Reported) Atorvastatin Calcium 40 MG TABLET 1 TAB PO QPM CHOLESTEROL (Reported) Carbidopa/Levodopa (Carbidopa-Levodopa 25-100 Tab) 25 MG-100 MG TABLET 1 TAB PO 5XDAILY PARKINSONS (Reported) Diltiazem HCl (Cardizem) 30 MG TABLET 1 TAB PO BID HEART Docusate Sodium (Colace) 100 MG CAPSULE 1 CAP PO BID STOOL SOFTENER (Reported ) Entacapone 200 MG TABLET 1 TAB PO TID PARKINSONS (Reported) Magnesium Oxide (Magnesium) 250 MG TABLET 1 TAB PO BID SUPPLEMENT (Reported) Potassium Chloride 20 MEQ TAB.ER.PRT 1 TAB PO DAILY SUPPLEMENT (Reported) Triage Note: BIBA FROM HOME, PER EMS AIDE ON SCENE REPORTED PATIENT HAD LOW BLOOD PRESSURE AND PATIENT WAS NOT HIMSELF. PATIENT HAS A HISTORY OF PARKINSONS, ALERT, ORIENTED TO PERSON/PLACE BUT NOT TIME. [facility] VITALS OBTAINED, PLACED ON MODEL MAKER PLASTER. FAMILY AT BEDSIDE. WILL CONTINUE TO MONITOR. Triage Nurses Notes Reviewed? yes Onset: Gradual Duration: getting worse Timing: recent history Severity: severe Severity Numbers: 7 HPI: Patient is a 76-year-old with a past medical history of sleep apnea, Parkinson's and Parkinson's dementia, hypertension hyperlipidemia recurrent urinary tract infections gait instability and multiple falls and a new diagnosis of atrial fibrillation with RVR she was admitted to [facility] on April 02 received Cardizem and heparin echocardiogram per old records indicate L VES 50%, patient then was transferred to short-term rehabilitation on April 06 patient was in short-term rehabilitation until this Sunday where Sunday patient and 24 hour home care staff was present was concerned that patient had a 30 SECOND episode of syncope while in the bathroom witnessed in which no seizure-like activity had occurred family members thought the patient was just tired and went to sleep Sunday patient was back at baseline however patient and home care staff state that patient has had significant deterioration of his ambulatory status and needs significant assistance using a walker and belt. In the past 24 hours however family members and home care staff are concerned of generalized weakness fatigue and noted at home to be hypotensive and intermittent episodes of tachycardia. No overt cough noted denies any chest pain fevers abdominal pain nausea vomiting leg swelling It is noted that patient prior to admission on April 02 had concerns of extremity left-sided weakness and strokelike symptoms however states that there was no imaging results showing concerns of stroke It was noted that patient was given medications prescriptions for amiodarone and diltiazem after discharge from hospital (Rakesh Lucero) Past History Travel History Traveled to [place] past 21 day No Medical History Any Pertinent Medical History? see below for history Neurological: dementia, Parkinson's disease EENT: NONE Cardiovascular: hypertension, hyperlipidemia Respiratory: NONE Gastrointestinal: NONE Hepatic: NONE Renal: NONE Musculoskeletal: ARTHRITIS Psychiatric: NONE Endocrine: NONE Blood Disorders: NONE Cancer(s): NONE History of MRSA: No History of VRE: No History of CDIFF: No Influenza Vaccine: 11/26/16 Surgical History Surgical History: hernia repair-inguinal Psychosocial History Who do you live with Spouse Services at Home Nursing, Occupational Therapy, Physical Therapy What is your primary language Upper Sorbian Tobacco Use: Quit >30 days ago ETOH Use: denies use Family History Family History, If Any: FATHER Relation not specified for: FH: Parkinson's disease Hx Contributory? No (Rakesh Lucero) Review of Systems Review of Systems Constitutional: Reports: see HPI, malaise, weakness. EENTM: Reports: no symptoms. Respiratory: Reports: no symptoms. Cardiovascular: Reports: no symptoms. GI: Reports: no symptoms. Genitourinary: Reports: no symptoms. Musculoskeletal: Reports: no symptoms. Skin: Reports: no symptoms. Neurological/Psychological: Reports: no symptoms. Hematologic/Endocrine: Reports: no symptoms. Immunologic/Allergic: Reports: no symptoms. All Other Systems: Reviewed and Negative (Rakesh Lucero) Physical Exam Physical Exam General Appearance: no apparent distress, comfortable Head: atraumatic Eyes: Bilateral: normal appearance, PERRL, EOMI. Ears, Nose, Throat: normal pharynx, normal ENT inspection Neck: normal inspection Respiratory: normal breath sounds Cardiovascular: regular rate/rhythm Gastrointestinal: normal bowel sounds, soft, non-tender Extremities: normal range of motion Skin: intact, normal color Comments: Full active range of motion bilateral upper and lower extremities Core Measures ACS in differential dx? No CVA/TIA Diagnosis No Sepsis Present: No Sepsis Focused Exam Completed? No (Rakesh Lucero) Progress Differential Diagnosis: arrythmia, alcohol intoxication, anemia, benign positional vertigo, CVA/stroke, dehydration, drug intoxication, encephalitis, electrolyte imbalance, GI bleed, hypoglycemia, hypoxia, intracranial Hem., intracranial mass/tumor, labrynthitis, meningitis, Meniere's disease, migraine CHIU, multiple sclerosis, pneumonia, postural hypotension, presyncope, post- traumatic vertigo, sepsis, seizure disorder, subarachnoid Hem., UTI/pyelo, vertebrobasilar insuff Plan of Care: Orders Procedure Date/time Status Heart Healthy Diet 05/03 B Active PT Evaluate & Treat 05/03 0849 Active CASE MANAGEMENT CONSULT 05/03 0849 Active Theraputic Activities 15 Min 05/03 UNK Complete Neuromuscular Re-Ed 15Min Ea 05/03 UNK Complete MOBILITY GOAL STATUS 05/03 UNK Complete MOBILITY CURRENT STATUS 05/03 UNK Complete PT EVAL LOW COMPLEX 20 MIN 05/03 UNK Complete Regular Diet 05/02 D Complete URINALYSIS 05/02 1550 Complete TROPONIN LEVEL 05/02 1550 Complete PARTIAL THROMBOPLASTIN TIME 05/02 1550 Complete PROTHROMBIN TIME 05/02 1550 Complete MAGNESIUM 05/02 1550 Complete LACTIC ACID 05/02 1550 Complete COMPREHENSIVE METABOLIC PANEL 05/02 155 Complete CBC WITHOUT DIFFERENTIAL 05/02 155 Complete EKG 05/02 1536 Active Current Medications Sig/Amador Start time Last Medication Dose Stop Time Status Admin Meclizine HCl 25 MG ONCE ONE 05/03 1100 CAN (Antivert) 05/03 1101 Amiodarone HCl 200 MG DAILY 05/03 1000 UNVr 05/03 (Cordarone) 1000 Aspirin 162 MG DAILY 05/03 1000 UNVr 05/03 (Aspirin) 1000 Atorvastatin Calcium 40 MG DAILY 05/03 1000 UNVr 05/03 (Lipitor) 1000 Carbidopa/Levodopa 1 TAB 5 TIMES A DAY 05/03 0745 UNVr 05/03 (Sinemet 25/100MG) 1000 Diltiazem HCl 30 MG BID 05/02 2199 UNVr 05/03 (Cardizem) 1000 Magnesium Oxide 400 MG BID 05/02 2199 UNVr 05/03 (Mag-Ox) 1000 Entacapone 200 MG TID 05/02 1836 UNVr 05/03 (Comtan) 1000 Laboratory Tests 05/02/17 1850: Lactic Acid Cancelled 05/02/17 1705: Urine Color YEL, Urine Clarity CLEAR, Urine pH 6.5, Ur Specific Ware 1.025, Urine Protein 30 H, Urine Ketones 15 H, Urine Nitrite NEG, Urine Bilirubin NEG , Urine Urobilinogen 0.2, Ur Leukocyte Esterase TRACE H, Ur Microscopic SEDIMENT EXAMINED, Urine RBC 1-3, Urine WBC 3-5 H, Ur Epithelial Cells MOD H, Urine Bacteria RARE H, Hyaline Casts 1-3 H, Urine Mucus MOD H, Urine Hemoglobin NEG, Urine Glucose NEG 05/02/17 1637: PT 12.0, INR 1.10, APTT 29 05/02/17 1607: Anion Gap 8, Estimated GFR > 60, BUN/Creatinine Ratio 21.0, Glucose 82, Lactic Acid 0.9, Calcium 8.6, Magnesium 2.3, Total Bilirubin 0.8, AST 29, ALT 20 L, Alkaline Phosphatase 78, Troponin I 0.02, Total Protein 7.1, Albumin 3.7, Globulin 3.4, Albumin/Globulin Ratio 1.1, CBC w Diff NO MAN DIFF REQ, RBC 5.34, MCV 75.8 L, MCH 23.9 L, MCHC 31.5 L, RDW 16.3 H, MPV 8.8, Gran % 70.9, Lymphocytes % 18.0 L, Monocytes % 9.0, Eosinophils % 1.7, Basophils % 0.4, Absolute Granulocytes 4.1, Absolute Lymphocytes 1.0 L, Absolute Monocytes 0.5, Absolute Eosinophils 0.1, Absolute Basophils 0 Patient on examination and resting comfortable at bedside no apparent distress patient is able to follow all commands No concerns of neurological deficit, patient had unremarkable labs, IT IS NOTED THAT PT IS A FULL LIFT ASSIST WITH GAIT BELT AND REQUIRES TWO PEOPLE TO WEIGHTBEAR AT BASELINE IN WHICH HE WAS EVALUATED BY NURSING TO FALL RISK AND WEIGHT BEARING AT it was noted by that patient has a significant decline since his discharge from the short-term rehabilitation facility for his weightbearing status and has significant GENERALIZED weakness and is a considerable fall risk if sent home, patient will require transfer from emergency room to short-term rehabilitation Discussed hand off with Dr. KAY IN WHICH PT IS A HOLD IN THE ER FOR TRANSFER BACK TO SHORT TERM REHAB. Initial ED EKG: normal intervals, normal p-waves, 73 BPM,NSR Hand-Off Endorsed To: Garret Kay MD Endorsed Time: 1999 Pending: consult (Rakesh Lucero) Hand-Off Endorsed To: Damon Pittman DO Endorsed Time: 699 Pending: other (STR placement) (Garret Kay MD) Departure Departure Disposition: ACUTE REHAB FACILITY Condition: Stable Clinical Impression Primary Impression: Weakness Referrals: Caty Franks MD (PCP/Family) Departure Forms: Customer Survey General Discharge Information (Rakesh Lucero) PA/PEOPLESOFT ANALYST Co-Sign Statement Statement: ED Attending supervision documentation- x I saw and evaluated the patient. I have also reviewed all the pertinent lab results and diagnostic results. I agree with the findings and the plan of care as documented in the PA's/PEOPLESOFT ANALYST's documentation. [] I have reviewed the ED Record and agree with the PA's/PEOPLESOFT ANALYST's documentation. [] Additions or exceptions (if any) to the PAs/PEOPLESOFT ANALYST's note and plan are summarized below: [] (Garret Kay MD) Departure Comments 05/03/17 1 PM The patient was signed out to me by Dr. Kay at 7 AM. He is for case management disposition. (Damon Pittman DO)
[2017-05-02 16:17] LABS: ABSOLUTE BASOPHIL COUNT 0 /CUMM (0.0-0.2); ABSOLUTE EOSINOPHIL COUNT 0.1 /CUMM (0.0-0.7); ABSOLUTE GRANULOCYTE CT 4.1 /CUMM (1.4-6.5); ABSOLUTE MONOCYTE COUNT 0.5 /CUMM (0.10-0.60); BASOPHIL % 0.4 % (0.0-2.0); EOSINOPHIL % 1.7 % (0-5); GRANULOCYTE % 70.9 % (42.2-75.2); HEMATOCRIT 40.5 % (42-52); MEAN CORPUSCULAR HGB 23.9 PG (27.0-31.0); MEAN CORPUSCULAR HGB CONC 31.5 G/DL (33.0-37.0); MEAN CORPUSCULAR VOLUME 75.8 FL (80.0-94.0); MEAN PLATELET VOLUME 8.8 FL (7.4-10.4); PLATELET COUNT 203 /CUMM (130-400); RBC DISTRIBUTION WIDTH 16.3 % (11.5-14.5); RED BLOOD CELL CT 5.34 /CUMM (4.70-6.10); WHITE BLOOD CELL COUNT 5.8 /CUMM (4.8-10.8)
[2017-05-02 16:59] LABS: PTT 29 SEC (25-37)
[2017-05-02] MEDS ORDERED: AMIODARONE HCL200 M1 PO (18:40)
[2017-05-02] MEDS ORDERED: ASPIRIN EC81 M1 PO (18:41)
[2017-05-02] MEDS ORDERED: ATORVASTATIN CA40 M1 PO (18:42)
[2017-05-02] MEDS ORDERED: MAGNESIUM250 M2 PO (18:44)
[2017-05-03 15:22] VITALS: BP 134/72
== END 2017-05-03 15:46 ==
LOC: ERH 14:53
PROVIDERS: Emergency Medicine
DX: R53.1 Weakness (principal)
CPT/HCPCS: 81001; 93005; 93010; 97112-GP; 97161-GP; 97530-GP; G8978-GP; G8979-GP